=== PATIENT | male | born 1960 | race Caucasian/White ===

== ENCOUNTER 2018-10-10 09:30 | Inpatient (IN) | payer OTHER ==
[~2018-10-10] VITALS: Ht 175.3 cm; Wt 102.1 kg
[2018-10-10 09:39] VITALS: BP 177/106
[2018-10-10 10:13] LABS: HEMATOCRIT 40.9 % (42.0-52.0); HEMOGLOBIN 13.4 gm/dL (14.0-18.0); MCH 28.5 pg (26.0-34.0); MCHC 32.7 g/dL (28.0-37.0); MCV 87.3 fL (80.0-100.0); MPV 10.2 fl. (7.2-11.1); NUCLEATED RBCS 0 /100WBC; PLATELET COUNT* 328 thou/uL (150-400); RBC 4.68 mil/uL (4.50-6.00); RDW-CV 12.6 % (10.5-14.5); WBC 17.5 thou/uL (4.0-11.0)
[2018-10-10 10:27] LABS: BE 2.6 mmol/L (-2 to +3); PCO2 34.7 mmHg (35.0-45.0); PO2 79.3 mmHg (75.0-100.0); pH 7.486 (7.340-7.450)
[2018-10-10 10:31] LABS: ALBUMIN 2.7 g/dL (3.4-5.0); CALCIUM 9.1 mg/dL (8.5-10.1); CREATININE 1.4 mg/dL (0.6-1.3); MAGNESIUM 1.9 mg/dL (1.8-2.4); POTASSIUM 3.6 mmol/L (3.5-5.1); TOTAL BILIRUBIN 0.6 mg/dL (<0.1-1.0); TOTAL PROTEIN 8.2 g/dL (6.4-8.2)
[2018-10-10 10:43] LABS: ABSOLUTE BASOPHILS 0.2 thou/uL (0.0-0.2); ABSOLUTE LYMPHOCYTES 0.7 thou/uL (0.8-5.3); ABSOLUTE MONOCYTES 1.4 thou/uL (0.0-1.2); ABSOLUTE NEUTROPHILS 15.2 thou/uL (1.6-8.1); ATYPICAL LYMPHS 2 %; PLATELET ESTIMATE ADEQUATE
[2018-10-10 10:57] LABS: URINE BILIRUBIN NEGATIVE (Negative); URINE BLOOD 1+ (Negative); URINE CLARITY CLEAR; URINE COLOR YELLOW; URINE GLUCOSE-RANDOM 3+ (Negative); URINE KETONES NEGATIVE (Negative); URINE LEUKOCYTES-REFLEX NEGATIVE (Negative); URINE NITRITE-REFLEX NEGATIVE (Negative); URINE PROTEIN NEGATIVE (Negative); URINE SPECIFIC GRAVITY <= 1.005 (1.005-1.030); URINE UROBILINOGEN 0.2 E.U./dl (0.2-1.0)
[2018-10-10 11:08] LABS: BACTERIA-REFLEX 1-9 Few /HPF (None Seen); CASTS None Seen /LPF (None Seen); CRYSTALS None Seen /LPF (None Seen); MUCUS None Seen strn/LPF (None Seen); SQUAMOUS 4-10 Moderate /LPF (0-3); URINE RBC 0-2 Rare /HPF (0-2); URINE WBC-REFLEX 0-5 Rare /HPF (0-5)
[2018-10-10 11:16] VITALS: BP 165/86
[2018-10-10 11:45] VITALS: BP 183/93
[2018-10-10] MEDS ORDERED: METFORMIN HCL500 MG PO (13:12)
[2018-10-10] MEDS ORDERED: LEVEMIR SUBQ (13:13)
[2018-10-10] MEDS ORDERED: LOPRESSOR50 PO (13:13)
[2018-10-10] MEDS ORDERED: COZAAR 25 MG TA25 M1 PO (13:15)
--- NOTE | 2018-10-10 15:19 | NUR ---
WOUND CARE NOTE: CONSULT RECEIVED FOR GANGRENE PATIENT PRESENTS WITH WET GANGRENE TO THE RIGHT 2ND TOE EXTENDING TO THE PLANTAR SURFACE OF HIS FOOT. FOUL ODOR NOTED UPON ENTERING ROOM. PATIENT WAS SEEN WITH PODIATRY. ANTICIPATE SURGERY THIS EVENING. DISTAL 2ND TOE IS BLACK, MUMIFIED. AT THE METATARSAL HEAD THERE IS WET, BLACK NON-VIABLE TISSUE. BLACK NON-VIABLE TISSUE EXTENDS TO THE PLANTAR AREA. ENTIRE FOREFOOT IS RED, EDEMATOUS. WRAPPED FOOT WITH DRY GAUZE UNTIL SURGERY. PATIENT EDUCATED ON NPO STATUS IN PREPARATION OF SURGERY, COMMUNICATED UNDERSGTANDING.
--- NOTE | 2018-10-10 15:40 | EKG ---
[place] [address] ELECTROCARDIOGRAM REPORT Name: NICK REYNOSO Room: [address] ADM IN .R.#: [id number] Admission: 10/10/18 Attend Phys: Sp Steiner Discharge: Date of : 58 Report #: [id number] THIS REPORT FOR: //name// [facility] ED Test Date: 2018-10-10 Test Time: 10:06:21 Pat Name: NICK REYNOSO Department: Room: [facility] Gender: M Cloud Systems Administrator: : 1960 Requested By: Megan Brown Order Number: [id number] MD: Vipul Bruce Measurements Intervals [place] Rate: 115 P: 82 WV: 187 QRS: 63 QRSD: 101 T: 262 QT: 332 QTc: 460 Interpretive Statements Sinus tachycardia Probable left atrial enlargement Nonspecific repol abnormality, diffuse leads No previous ECG available for comparison Electronically Signed On 10-10-2018 15:40:44 CDT by Vipul Bruce [email or web address] <ELECTRONICALLY SIGNED> By: Vipul Bruce MD, [facility] 10/10/18 1540 1006 05 Vipul Bruce MD, FAC /EPI
[2018-10-10 17:35] VITALS: BP 124/73
[2018-10-10 20:20] VITALS: BP 139/77
[2018-10-11] VITALS: BP 163/88
[2018-10-11 02:10] LABS: GLYCOHEMOGLOBIN (HGB A1C) 12.4 % (4.8-5.6)
[2018-10-11 04:00] VITALS: BP 147/79
--- NOTE | 2018-10-11 05:01 | NUR ---
PT CARE ASSUMED AT 1930. ALERT AND ORIENTED X4. CALL LIGHT WITHIN REACH AND BED IN LOW POSITION. SAT MAINTAINED IN RA. C/O PAIN, MEDICATION GIVEN PER EMAR. DRESSING C/D/I. HOURLY ROUNDING DONE FOR PT SAFETY.
[2018-10-11 08:00] VITALS: BP 155/79
--- NOTE | 2018-10-11 08:00 | NUR ---
AM ASSESSMENT COMPLETE, DEFER TO COMPUTER CHARTING. SEED TECHNICIAN TRACKING SR. ALERT ORIENTED, FLAT AFFECT. LUNGS CTA - DIMINISHED IN BASES. DRESSING TO RIGHT FOOT CDI - EXTREMITY ELEVATED ON PILLOW. REPORTING HAVING DISCOMFORT IN FOOT, WILL GIVE REPEAT PAIN MEDICATION AND CONTINUE TO MONITOR. CALL LIGHT WITHIN REACH.
[2018-10-11 11:50] LABS: ABSOLUTE BASOPHILS 0.2 thou/uL (0.0-0.2); ABSOLUTE LYMPHOCYTES 0.9 thou/uL (0.8-5.3); ABSOLUTE MONOCYTES 1.6 thou/uL (0.0-1.2); ABSOLUTE NEUTROPHILS 12.8 thou/uL (1.6-8.1); BASOPHILS 1.1 %; EOSINOPHILS 0.1 %; HEMATOCRIT 34.2 % (42.0-52.0); LYMPHOCYTES 5.8 %; MCH 28.7 pg (26.0-34.0); MCHC 32.9 g/dL (28.0-37.0); MCV 87.2 fL (80.0-100.0); MONOCYTES 10.2 %; MPV 10.2 fl. (7.2-11.1); NUCLEATED RBCS 0 /100WBC; PLATELET COUNT* 315 thou/uL (150-400); POLYS 82.8 %; RBC 3.93 mil/uL (4.50-6.00); RDW-CV 12.7 % (10.5-14.5); WBC 15.4 thou/uL (4.0-11.0)
[2018-10-11 11:51] LABS: HEMOGLOBIN 11.3 gm/dL (14.0-18.0)
--- NOTE | 2018-10-11 12:08 | CON ---
[address] [address] CONSULTATION Name: NICK REYNOSO Room: [address] IN M.R.#: [id number] Admission: 10/10/18 Attend Phys: Sp Steiner Discharge: Date of : 58 Report #: [id number] THIS REPORT FOR: //name// CC: Fredcarrol Wright He Garcia DATE OF SERVICE: 10/10/2018 Infectious Disease Consultation ATTENDING PHYSICIAN: He Garcia DO REASON FOR EVALUATION: Right second toe necrotizing infection, likely deep probable osteomyelitis. HISTORY OF PRESENT ILLNESS: Chart reviewed, patient examined. This is a 57-year-old with diabetes mellitus type 2 complicated by vasculopathy, has peripheral neuropathy as well, presented to the emergency room with complaints of discoloration of his right second toe. This was found to be black. He noted change happened roughly 2-3 weeks ago. He says his blood sugars have been running in excess of 250. It is not clear if he has had systemic illness. He has had not any fevers or chills nor has he had any dyspnea, no abdominal-related complaints. He is actually scheduled to have his toe amputation this afternoon. Other evaluation, chest x-ray was otherwise unremarkable. ABGs: pH 7.486 with a pO2 of 79.3 on room air. Lactic acid was 3.1 and repeat was 2.3 and 2.0 respectively. Glucose is now controlled and in the [address] of lower extremities showed some subcutaneous emphysema in the forefoot extending to the second toe compatible with a known diagnosis cellulitis and gangrene. There is also gas within the proximal, middle and distal phalanx of the second toe, marked thinning of the skin and distal aspect of the second toe. White count is elevated at 17.5. Blood cultures have been collected and are pending. ALLERGIES: PENICILLINS. CURRENT MEDICATIONS: Include metoprolol, p.r.n. analgesics, antiemetics, did receive vancomycin and ceftriaxone preop. PAST MEDICAL HISTORY: Diabetes mellitus type 2, complicated by vasculopathy; hypertension, has known aortocoronary bypass grafting, has had back surgery. SOCIAL HISTORY: Former smoker. No ethanol or illicit drug use. FAMILY HISTORY: Noncontributory. REVIEW OF SYSTEMS: [place] [address] CONSULTATION Name: UMAIR REYNOSOZAINAB Grant Room: [address] IN [facility]#: [id number] Admission: 10/10/18 Attend Phys: Sp Steiner Discharge: Date of : 58 Report #: [id number] REVIEW OF SYSTEMS: Except with exception noted above in history of present illness. PHYSICAL EXAMINATION: GENERAL: He appears somewhat flat affect. He is pale, fbno-[id number] distress, appears undernourished. VITAL SIGNS: Temperature 99.8, pulse 111, respirations 18, blood pressure 183/93. SKIN: Warm, dry. No appreciated rashes. HEENT: Normocephalic. Extraocular muscles intact. NECK: Supple. LUNGS: Clear to auscultation. HEART: Regular, tachycardic, cannot appreciate a murmur. ABDOMEN: Soft, nontender. GENITOURINARY AND RECTAL: Deferred. LABORATORY DATA: Most recent lactic acid of 2.0. Initially was 3.1. Urinalysis: 0-5 white cells. CBC: White count of 17.5, H and H 13.4 and 40.9, platelets 328. Electrolytes: Sodium 128, potassium 3.6, chloride 88, bicarbonate is 28, anion gap of 12, BUN and creatinine 13 and 1.4, glucose was 588. LFTs unremarkable. Albumin of 2.7, total protein of 8.2. ABGs: pH 7.486, pCO2 34.7, pO2 of 79.3. IMAGING DATA: Chest x-ray unremarkable. ASSESSMENT: Gangrenous changes involving the second right toe. I suspect deep infection, probable osteomyelitis. Agree with the amputation. We will await findings to the severity and extent per Dr. Mason at surgery. We will continue empiric antimicrobial therapy, presume a polymicrobial etiology. We will have to likely make arrangements for outpatient parenteral therapy for up to 6 weeks. <ELECTRONICALLY SIGNED> By: Gerardo Sawyer MD 10/11/18 1208 [id number] [id number] Sawyer MD /nt
[2018-10-11 12:21] VITALS: BP 137/74
--- NOTE | 2018-10-11 14:59 | NUR ---
Pt is A&O. Resides at home with a roommate. Active and independent. NO DME. No hx of HH or SNF. Goal is home at dc, no needs anticipated. Following.
--- NOTE | 2018-10-11 15:48 | NUR ---
TO RADIOLOGY FOR TEST VIA BED
[2018-10-11 17:18] VITALS: BP 178/91
--- NOTE | 2018-10-11 17:59 | NUR ---
RUGBY UNION FOOTBALLER TRACKING WITH NO CHANGE IN RHYTHM. ELEVATED TEMPATURE - PATIENT REFUSING SCHEDULED TYLENOL EARLIER - EDUCATED ON IMPORTANCE OF TAKING MEDICATION - AGREED TO TAKE TYLENOL. GIVEN MORPHINE IV X 2 DURING SHIFT FOR DISCOMFORT IN RIGHT FOOT. TOLERATING DIET, IV INFUSING. DRESSING CDI TO RIGHT FOOT. CALL LIGHT WITHIN REACH. WILL CONTINUE WITH PLAN OF CARE.
[2018-10-11 19:30] VITALS: BP 136/77
[2018-10-12] VITALS: BP 106/70
[2018-10-12 04:00] VITALS: BP 117/62
--- NOTE | 2018-10-12 05:28 | NUR ---
VITALS WNL. SEE MAR. SEE CHARTING. FALL PRECAUTIONS IN PLACE. HOURLY ROUNDING FOR SAFETY.
[2018-10-12 08:10] VITALS: BP 135/71
[2018-10-12 11:30] VITALS: BP 121/73
--- NOTE | 2018-10-12 13:34 | NUR ---
BUSINESS EMPLOYMENT SPECIALIST SPOKE TO DILLAN WITH [facility] TO INFORM OF THE IV ABT INFUSION REFERRAL AND FAXED THE PATIENT'S FACESHEET AND MED LIST. SOCORRO RETURNED CALL AND INFORMS THAT THE PATIENT HAS A $500 DEDUCTIBLE AND $4500 OOP COST, THAT HAS NOT BEEN MET AT THIS TIME. PATIENT SHOULD MEET THE DEDUCTIBLE THRU THIS HOSPITAL ADMISSION. PATIENT'S ESTIMATED COST IF DEDUCTIBLE IS NO T MET BASED ON ABT OF MATIAS IS $265.20 PER/DAY WITH SUIPPLIES. COST IF DEDUCTIBLE IS MET IS $45.90 PER/DAY WITH SUPPLIES. D/C SURGICAL SERVICES TECH TO SPEAK TO THE PATIENT TO INFORM OF THIS INFO. CM WILL REMAIN AVAILABLE TO ASSIST AND FOLLOW NEEDED. [facility] PHONE: [phone] FAX: [phone]
--- NOTE | 2018-10-12 15:44 | NUR ---
WOUND CARE NOTE: REASSESSMENT OF RIGHT FOOT WOUND WITH PODIATRY. PATIENT IS POD #2 FROM I&D AND AMPUTATIONS OF 1ST AND 2ND TOES AND DISTAL 2ND METATARSAL HEAD ON THE RIGHT. LARGE ULCERATION WITH MOIST, DARK RED WOUND BED. BONE EXPOSED. MONCHO-WOUND DISCOLORED. FOUL ODOR NOTED. PHOTOGRAPHS OBTAINED. PODIATRY AND VASCULAR SLAB CONDITIONER SUPERVISOR IN AND ASSESSED WOUNDS. ANTICIPATE ANGIO ON MONDAY, ANTICIPATE FURTHER SURGICAL DEBRIDEMENT MAY BE NECESSARY. PACKED WOUND WITH AQUACEL AG AND COVERED WITH ABDS. SECURED WITH KERLIX THEN MANDA WRAP. RECOMMEND KEEP PRESSURE OFF RIGHT FOOT HEEL WEIGHT BEARING FOR TRANSFERS ONLY ENCOURAGE GOOD NUTRTION/HYDRATION TIGHT BLOOD GLUCOSE CONTROL
--- NOTE | 2018-10-12 15:57 | NUR ---
RIGHT BASILIC VESSEL ACCESSED FOR 4 SAUDI ARABIAN SINGLE LUMEN PICC. LINE PRE-TRIMMED TO 41 CM AND ADVANCED TO THE ZERO APOLINAR WITH NO RESISTANCE MET. UPPER ARM CIRCUMFERENCE ABOVE INSERTION SITE= 13". SHERLOCK MAGNET AND 3CG CONFIRMATION OF TIP AT THE CAVOATRIAL JUNCTION. GUIDEWIRE REMOVED, LINE FLUSHED AND INSERTION SITE DRESSED. REPORT GIVEN TO NURSING STAFF.
[2018-10-12 16:00] VITALS: BP 127/68
--- NOTE | 2018-10-12 16:15 | NUR ---
PT VSS RUNNING SR ON THE MONITOR THIS SHIFT TOLERATING RA. PT HAD ELEVATED TEMPS OVERNIGHT, BUT NO C/O ELEVATED TEMP THIS SHIFT. DR FIERRO PLACED BOWEL MEDS ORDERS BUT PT HAD BM THIS SHIFT AND AN ORDER FOR INCREASED DOSE OF PAIN MEDS WAS PROVIDED TO PT AND HIS PAIN IS MUCH BETTER MANAGED. DR JENKINS AND WOUND CARE ASSESSED PT WELL VASCULAR THIS SHIFT, WILL AWAIT FURTHER ORDERS REGARDING WOUND CARE AND DRESSING CHANGES. PT HAS TO HAVE PULSES DOPPLERED FOR HIS BLE AND SITES MARKED ON THE RIGHT FOOT, PT HAS 1+ PULSES ON THE POPLITEAL SITES BILATERALLY. PT HAS FLUIDS INFUSING AND TOLERATED A SL PICC LINE PLACEMENT THIS SHIFT DUE TO NEED FOR VOLUNTEER SERVICES DIRECTOR IV ABX. PT IS NWB TO RLE AT THIS TIME, WOUNDS PHOTOED AND PLACED IN THE CHART. PT TOLERATING DIET THIS SHIFT WELL. HOURLY ROUNDING MAINTAINED THIS SHIFT. WILL SIGN OFF AT THIS TIME
--- NOTE | 2018-10-12 17:16 | NUR ---
ASSUMMED CARE OF PT. PT ALERT AND ORIENTED. PT RESTING IN ROOM. FALL RISK PRECAUTIONS IN PLACE. HOURLY ROUNDING COMPLETED. WILL CONTINUE TO MONIIOR.
[2018-10-13] VITALS (7 sets, daily range): BP systolic 113–144; BP diastolic 60–77
[2018-10-13 06:53] LABS: ABSOLUTE BASOPHILS 0.1 thou/uL (0.0-0.2); ABSOLUTE EOSINOPHILS 0.1 thou/uL (0.0-0.7); ABSOLUTE LYMPHOCYTES 1.2 thou/uL (0.8-5.3); ABSOLUTE MONOCYTES 1.4 thou/uL (0.0-1.2); ABSOLUTE NEUTROPHILS 8.9 thou/uL (1.6-8.1); BASOPHILS 0.8 %; EOSINOPHILS 1.2 %; HEMATOCRIT 31.5 % (42.0-52.0); HEMOGLOBIN 10.5 gm/dL (14.0-18.0); LYMPHOCYTES 10.5 %; MCH 28.8 pg (26.0-34.0); MCHC 33.3 g/dL (28.0-37.0); MCV 86.3 fL (80.0-100.0); MPV 9.5 fl. (7.2-11.1); NUCLEATED RBCS 0 /100WBC; PLATELET COUNT* 323 thou/uL (150-400); POLYS 75.5 %; RBC 3.65 mil/uL (4.50-6.00); WBC 11.8 thou/uL (4.0-11.0)
--- NOTE | 2018-10-13 06:55 | NUR ---
VITALS WNL. SEE MAR. SEE CHARTING. FALL PRECAUTIONS IN PLACE. HOURLY ROUNDING FOR SAFETY.
[2018-10-13 08:10] LABS: ESR (SEDRATE) 110 mm/hr (0-20)
--- NOTE | 2018-10-13 08:38 | NUR ---
ASSUMED CARE OF PT THIS AM AROUND 0715- DISTRICT HOME ECONOMICS AGENT IN PLACE ORDERED, TRACING SR- UPON ASSESSMENT PT NOTED TO BE RESTING IN BED, WATCHING TV- PT A&O X4- CONTINENT OF BOWEL AND BLADDER- ASSIST X1 WITH TRANSFERS, NWB STATUS NOTED TO RLE- 1ST 2 TOES NOTED AMPUTATION- DRESSING C/D/I- LCTA, RESP EVEN AND UN-LABORED- VSS, O2 SAT 93% ON RA- ABD SOFT/ROUND/NON-TENDER, BS X4 QUADS- LAST BM REPORTED 10/12/18- RIGHT PICC NOTED INTACT TO RUE, IVF INFUSSING PRESCIBED- IV ABT GIVEN THIS AM PRESCIBED, NO ADVERSE REACTIONS TO NOTE- BS MONITORED ORDERED, INSULIN PRESCIBED- CALL LIGHT AND PERSONAL BELONGINGS WITH IN REACH- PRN OXY 2 TABS GIVEN THIS AM AT 0811 PER PT REQUEST R/T 9/10 PAIN TO RLE- HOURLY ROUNDS IN PLACE R/T SAFETY/NEEDS- ALL NEEDS MET AT THIS TIME-WCTM
--- NOTE | 2018-10-13 16:44 | NUR ---
PT AGNIESZKA RESTING IN BED SIDE CHAIR WATCHING TV- ASSISTANT PROFESSOR OF ART IN PLACE ORDERED, TRACING SR- PICC TO RUE INTACT, IVF INFUSSING PRESCRIBED- VANC ROUGH NOTED TO BE 2 HOURS LATE WITH RESULTS NOTED LOW AT 13- LAB STATES TO CONTINUE CURRENT DOSE WITH REDRAW TO BE SCHEDULED- DRESSING TO RLE CHANGED PER THIS SHIFT- SCHEDULED TYLENOL AND PRN OXY GIVEN THIS SHIFT- PT REPORTS MEDICATIONS TO BE EFECTIVE IN PAIN RELIEF- GOOD PO INTAKE NOTED THIS SHIFT WITH MEALS, BS MONITORED WITH SSI PRESCIBED- CALL LIGHT AND PERSONAL BELONGINGS WITH IN REACH- ALL NEEDS MET AT THIS TIME- WCTM
[2018-10-14 04:00] VITALS: BP 153/77
[2018-10-14 04:32] LABS: CALCIUM 8.7 mg/dL (8.5-10.1); CREATININE 1.2 mg/dL (0.6-1.3); POTASSIUM 4.2 mmol/L (3.5-5.1)
[2018-10-14 04:33] LABS: ABSOLUTE BASOPHILS 0.1 thou/uL (0.0-0.2); ABSOLUTE EOSINOPHILS 0.3 thou/uL (0.0-0.7); ABSOLUTE LYMPHOCYTES 1.6 thou/uL (0.8-5.3); ABSOLUTE MONOCYTES 1.2 thou/uL (0.0-1.2); ABSOLUTE NEUTROPHILS 8.1 thou/uL (1.6-8.1); BASOPHILS 0.7 %; EOSINOPHILS 2.5 %; HEMATOCRIT 31.1 % (42.0-52.0); HEMOGLOBIN 10.1 gm/dL (14.0-18.0); LYMPHOCYTES 13.9 %; MCH 28.2 pg (26.0-34.0); MCHC 32.6 g/dL (28.0-37.0); MCV 86.5 fL (80.0-100.0); MONOCYTES 10.7 %; NUCLEATED RBCS 0 /100WBC; PLATELET COUNT* 354 thou/uL (150-400); POLYS 72.2 %; RBC 3.59 mil/uL (4.50-6.00); RDW-CV 13.2 % (10.5-14.5); WBC 11.2 thou/uL (4.0-11.0)
--- NOTE | 2018-10-14 06:42 | NUR ---
VITALS WNL. SEE MAR. SEE CHARTING. FALL PRECAUTIONS IN PLACE. HOURLY ROUNDING FOR SAFETY.
[2018-10-14 07:55] VITALS: BP 147/66
--- NOTE | 2018-10-14 09:23 | NUR ---
ASSUMED CARE OF PT THIS AM AROUND 0715- PILOT [address]IG[address] PATROL IN PLACE ORDERED, TRACING SR- UPON ASSESSMENT PT NOTED TO BE RESTING IN BED- PT A&O X4- CONTINENT OF BOWEL AND BLADDER- ASSIST X1 FOR TRANSFERS, NWB TO RLE- LCTA, DIMINISHED IN BASES- VSS, O2 SAT 92% ON RA- ABD SOFT/ROUND/NON-TENDER, BS X4 QUADS- LAST BM REPORTED 10/14/18- GOOD PO INTAKE NOTED THIS AM WITH BREAKFAST- RUE PICC NOTED INTACT, IVF INFUSSING PRESCRIBED- IV ABT GIVEN THIS AM PRESCIBED, NO ADVERSE REACTIONS NOTED- HERE THIS AM AND REPORTED TO HAVE CHANGED DRESSING TO RLE, DRESSING C/D/I- UNABLE TO OBTAIN PICTURES R/T TO DRESSING CHANGE ALREADY COMPLETED- PT DENEIS ANY C/O PAIN/DISCOMFORT AT THIS TIME- CALL LIGHT AND PERSONAL BELONGINGS WITH IN REACH- HOURLY ROUNDS IN PLACE R/T SAFETY/NEEDS- ALL NEEDS MET AT THIS TIME-WCTM
[2018-10-14 12:18] VITALS: BP 125/71
[2018-10-14 16:23] VITALS: BP 165/63
--- NOTE | 2018-10-14 16:33 | NUR ---
PT NASHLTKaya RESTING IN BED- PRINTING ROLLER HANDLER IN PLACE ORDERED, TRACING SR-RUE PICC NOTED INTACT, IVF INFUSSING PRESCRIBED- PT UP TO BED SIDE CHAIR THIS SHIFT, TOLERATING WELL- GOOS PO INTAKE NOTED THIS SHIFT WITH MEALS- BS MONITORED ORDERED, SSI PRESCIBED- IV VANC D/C'D THIS SHIFT PER ID-HYDROCORTISONE CREAM ORDERED FOR FACE BID PER ID THIS SHIFT- DRSG TO RLE C/D/I- OXY PRN X2 THIS SHIFT R/T C/O RLE FOOT PAIN- PT REPORTS MEDICATION TO BE EFFECTIVE- PT MAKES NEEDS KNOWN- ALL NEEDS MET AT THIS TIME- WCTM
[2018-10-15] VITALS (8 sets, daily range): BP systolic 130–170; BP diastolic 72–82
--- NOTE | 2018-10-15 06:41 | NUR ---
VITALS WNL. SEE MAR. SEE CHARTING. FALL PRECAUTIONS IN PLACE. HOURLY ROUNDING FOR SAFETY.
--- NOTE | 2018-10-15 10:19 | NUR ---
EXPLORATION ENGINEER SPOKE TO DILLAN WITH [facility] AND SHE INFORMS THAT [facility] IS READY TO ACCCEPT THE PATIENT TODAY. I.D. PROGRESS NOTE INFORMS THAT THE PATIENT MAY BE HAVING PROCEDURE DONE TODAY AND MAY NOT BE READY TO D/C. CM WILL REMAIN AVIALABLE TO ASSIST AND FOLLOW NEEDED.
--- NOTE | 2018-10-15 11:06 | PATH ---
[address] [address] PATHOLOGY RPT PROCEDURE Name: ANGELESTOÑO Room: [address] IN .R.#: [id number] Admission: 10/10/18 Date of : 58 Discharge: Report #: [id number] Path Case #: [id number] [facility] Accession Number: [id number] . 01 Material submitted: . PART A: RIGHT HALLUX SESAMOID, RIGHT FOOT PART B: SECOND METATARSAL/SECOND TOE RIGHT FOOT . 01 Clinical history: . Osteomyelitis right second toe . 02 Diagnosis: A. Right hallux, sesamoid, right foot: - Benign toe (with missing nail), with nonspecific ulceration and prominent osteomyelitis of underlying phalangeal bone, with proximal disarticulation margin free of osteomyelitis. - Separate benign osteocartilaginous tissue compatible with sesamoid bone, with prominent acute inflammation of attached soft tissues. . B. Second metatarsal/second toe right foot: - Benign toe (with missing nail) with prominent acute inflammation and necrosis of soft tissues and mostly necrotic bone. - Separate osteocartilaginous segment compatible with metatarsal showing prominent osteomyelitis and acute inflammation of attached soft tissues. See comment. (NEGRO:micaela; 10/15/2018) QMS/10/15/2018 . 02 Comment: In the separate osteocartilaginous segment compatible with metatarsal (specimen B) one convex articular aspect, typical of a metatarsal head, shows acute inflammation of soft tissue at the edge with osteomyelitis focally extending beneath the cartilagious surface and the opposite transection edge of this segment is free of osteomyelitis. (NEGRO:micaela; 10/15/2018) . 02 Electronically signed: . Bruce [place] MD, Pathologist NPI- [id number] . 01 Gross description: . A. The specimen is received in formalin, labeled "Toño Jackson, right hallux, sesamoid right foot"and consists of a disarticulated toe measuring 5.8 x 3.6 x 3.3 cm. The bone margin is smooth and concave in appearance, consistent with disarticulation. The bone and soft tissue margins are inked black. The nail is absent. At the nailbed, there is a poorly circumscribed, irregular in contour and light de guzman to fletcher-de guzman lesion measuring 1.7 x 1.7 cm, which is 2.0 cm from [place] [address] PATHOLOGY RPT PROCEDURE Name: TOÑO JACKSON Juanita Room: [address] IN [facility]#: [id number] Admission: 10/10/18 Date of : 58 Discharge: Report #: [id number] Path Case #: [id number] lateral aspect of the specimen, there is a possible lesion at the skin margin measuring 2.3 x 1.1 cm. A full-thickness longitudinal cross-section is submitted from proximal to distal aspects in cassettes A1 through A3, following decalcification. Sister Superior sections of the possible lesion on the lateral aspect of the specimen are submitted in cassette A4. . Also received within the specimen container is an additional segment of bone with attached yellow-de guzman to dusky fletcher-de guzman soft tissue measuring 3.6 x 3.3 x 1.8 cm. Articular surfaces are identified, and are inked black. The specimen is submitted representatively in cassette A5, following decalcification. . B. The specimen is received in formalin, labeled "Toño Jackson, second metatarsal/second toe right foot". Received is an amputated digit measuring 4.1 x 2.3 x 1.9 cm in greatest dimensions. The bone margin is jagged in appearance. The soft tissue margin is necrotic in appearance. The bone and soft tissue margins are inked black. The nail is absent. 98% of the epidermal surface is dusky fletcher-brown to black and necrotic in appearance. A full-thickness longitudinal cross-section is submitted from proximal to distal aspects in cassettes B1 and B2, following decalcification. . Also received within the specimen container is an additional segment of bone displaying one smooth, convex margin and one blunt, transected margin 4.6 x 2.1 x 1.6 cm in greatest dimension. The transected margin is inked black. A full-thickness longitudinal cross-section is submitted from transected to convex aspects and submitted in cassettes B1 through B4, following decalcification. (CAA; 10/11/2018) QAC/QAC . 02 Pathologist provided ICD-10: M86.8X7, L97.519 . 02 CPT . 721633, 735917, 128252, 153470 Specimen Comment: A courtesy copy of this report has been sent to Specimen Comment: [phone], . Specimen Comment: Report sent to DR FIERRO / DR SANTOS Performed at: [address], [place], [place] [id number] MD Darwin Owen MD Phone: [phone] Performed at: 02 [facility] [address], [place], [place] [id number] MD Bruce [place] MD Phone: [phone]
[2018-10-15 17:10] LABS: GLOBULIN TOTAL 4.2 g/dL (2.2-3.9); M-SPIKE Not Observed g/dL (Not Observed)
--- NOTE | 2018-10-15 17:50 | NUR ---
PATIENT RETURNED TO ROOM FROM ARTERIOGRAM IN IR VIA HOSPITAL BED AND IR STAFF. ASSESSMENT COMPLETE, VS OBTAINED. CLINICAL RESEARCH ANALYST IN PLACE, O2 SAT 97% RA. PT LAYING FLAT UNTIL 193. DRSG C/D/I OVER L GROIN SITE. CALL LIGHT IN REACH.
[2018-10-16] VITALS: BP 138/85
[2018-10-16 04:00] VITALS: BP 154/86
[2018-10-16 07:30] VITALS: BP 151/79
[2018-10-16 07:53] LABS: HEMATOCRIT 28.4 % (42.0-52.0); HEMOGLOBIN 9.6 gm/dL (14.0-18.0); MCH 28.9 pg (26.0-34.0); MCHC 33.6 g/dL (28.0-37.0); MCV 85.9 fL (80.0-100.0); NUCLEATED RBCS 0 /100WBC; PLATELET COUNT* 369 thou/uL (150-400); RBC 3.31 mil/uL (4.50-6.00); RDW-CV 13.7 % (10.5-14.5); WBC 9.4 thou/uL (4.0-11.0)
--- NOTE | 2018-10-16 07:59 | NUR ---
PT IS ABLE TO COMMUNICATE HIS NEEDS TO STAFF EFFECTIVELY. CURRENT PAIN MEDICATION REGIMEN HAS BEEN ADEQUATE FOR CONTROLLING HIS PAIN UP TO THIS TIME. PT RECEIVED AN AMBIEN LAST EVENING TO HELP WITH SLEEP; PT LATER PULLED OUT PICC LINE, WAS CONFUSED, AND NAKED IN THE HALLWAY; PT DENIES ACTING IN THIS WAY ON PREVIOUS NIGHTS; AMBIEN WAS ONLY CHANGE. RIGHT FOOT ELEVATED OVERNIGNT. DR. SANTIAGO AND [facility] TO DISCUSS NEXT BEST COURSE OF ACTION REGARDING HIS RIGHT FOOT.
[2018-10-16 08:09] LABS: ALBUMIN 1.8 g/dL (3.4-5.0); CALCIUM 8.4 mg/dL (8.5-10.1); TOTAL BILIRUBIN 0.4 mg/dL (<0.1-1.0); TOTAL PROTEIN 6.3 g/dL (6.4-8.2)
[2018-10-16 08:40] LABS: ABSOLUTE EOSINOPHILS 0.2 thou/uL (0.0-0.7); ABSOLUTE LYMPHOCYTES 1.2 thou/uL (0.8-5.3); ABSOLUTE MONOCYTES 0.6 thou/uL (0.0-1.2); ABSOLUTE NEUTROPHILS 7.4 thou/uL (1.6-8.1); PLATELET ESTIMATE ADEQUATE
[2018-10-16 12:24] VITALS: BP 142/71
[2018-10-16 14:56] VITALS: BP 170/74
--- NOTE | 2018-10-16 15:56 | NUR ---
RIGHT CEPHALIC VESSEL ACCESSED FOR SINGLE LUMEN PICC. LINE PRE-TRIMMED TO 41 CM AND ADVANCED TO THE ZERO APOLINAR WITH NO RESISTANCE MET. UPPER ARM CIRCUMFERENCE ABOVE INSERTION SITE= 12 1/2". SHERLOCK MAGNET AND 3CG CONFIRMATION OF TIP TERMINATION AT THE CAVOATRIAL JUNCTION. GUIDE =WIRE REMOVED, LINE FLUSHED AND INSERTION SITE DRESSED. REPORT GIVEN TO JAYA ALEJANDRO.
[2018-10-16 20:05] VITALS: BP 124/63
[2018-10-17] VITALS: BP 139/81
[2018-10-17 04:00] VITALS: BP 157/89
--- NOTE | 2018-10-17 06:09 | NUR ---
VSS. SURGICAL DRESSING TO R FOOT C/D/I. PT HAS KEPT RLE ELEVATED ON PILLOW. C/O R FOOT PAIN 8-9/10 EARLY IN SHIFT, DIFFICULTY REDUCING PAIN PRN OXYCODONE AND HYDROCODONE. ONE DOSE PRN MORPHINE GIVEN AND PT HAD NO C/O OF PAIN FOR SEVERAL HOURS THEREAFTER, APPEARED TO SLEEP WELL. CALL LIGHT WITHIN REACH.
--- NOTE | 2018-10-17 07:20 | NUR ---
CHANGE OF SHIFT BEDSIDE REPORT GIVEN PATIENT SEEN AT BEDSIDE, IN BED ASLEEP ASSUMED PATIENT CARE
--- NOTE | 2018-10-17 07:59 | OP ---
[facility] [address] [place] [address] OPERATIVE REPORT Name: NICK REYNOSO Room: [address] IN M.R.#: [id number] Admission: 10/10/18 Attend Phys: Sp Steiner Discharge: Date of : 58 Report #: [id number] THIS REPORT FOR: //name// CC: Fred Garcia DATE OF SERVICE: 10/15/2018 PREOPERATIVE DIAGNOSIS: Critical right lower extremity ischemia with open right foot wound. POSTOPERATIVE DIAGNOSIS: Critical right lower extremity ischemia with open right foot wound. OPERATION: 1. Ultrasound-guided access to left common femoral artery. 2. Aortoiliofemoral angiogram. 3. Third order selective right lower extremity angiogram. 4. Right SFA and popliteal angioplasty and stent. 5. Right peroneal and posterior tibial artery angioplasty. SURGEON: Gaurav Harrison DO. SECURITY SYSTEMS ENGINEER: Dr. Friedman, PGY2. ZOË Paulino. ANESTHESIA: Sedation with local. ESTIMATED BLOOD LOSS: 25 mL. FLUIDS: About 500 crystalloid. URINE OUTPUT: None. SPECIMENS: None. IMPLANTS: 6 x 170 LifeStent in the right SFA and popliteal artery. COMPLICATIONS: None. FINDINGS: Initial aortogram demonstrated patent infrarenal aorta, bilateral renal arteries, bilateral common internal and external iliac arteries without significant stenosis. Right lower extremity angiogram demonstrated patent right common femoral, deep femoral arteries without significant stenosis. Right superficial femoral artery was patent with some mild stenosis in the proximal mid portion and occluded distally at the adductor hiatus. He had reconstitution of the knee popliteal artery. His below-knee popliteal artery was patent. His [address] [address] OPERATIVE REPORT Name: NICK REYNOSO Juanita Room: [address] IN .R.#: [id number] Admission: 10/10/18 Attend Phys: Sp Steiner Discharge: Date of : 58 Report #: [id number] right anterior tibial artery was chronically occluded just distal to its origin. His right peroneal artery had moderate diffuse stenosis ____ runoff into the foot. His posterior tibial artery origin was occluded, but after angioplasty, this had druze of inline flow primarily through the posterior tibial artery. CLINICAL HISTORY: The patient is a 57-year-old man with peripheral vascular disease and status post right partial foot amputation. He is in need of revascularization for limb salvage. DESCRIPTION OF PROCEDURE: After informed consent was obtained, the patient was taken to the operating room and placed on the OR bed in supine position. He was administered anesthesia sedation by the nurse at my discretion. Local anesthetic was infiltrated in the skin and subcutaneous tissues. Using ultrasound guidance, the left common femoral artery was accessed with a micropuncture needle. These images were preserved. Using Seldinger technique, a microwire and microsheath were placed, ultimately upsized to a 6-Northern Irish sheath over a Bentson wire. I was able to advance the flush catheter in the infrarenal aorta and performed aortoiliofemoral angiogram with the findings noted above. Obtained up and over access across the bifurcation, positioned catheter in the right common femoral artery, performed the selective right lower extremity angiogram with findings noted above. I administered 8000 units of heparin and exchanged out for a 6-Northern Irish up and over sheath. Then, using a combination of Glidewire Advantage and a seeker catheter, I navigated across the SFA and popliteal artery occlusion. Followup imaging confirmed intraluminal position within the distal popliteal artery. I then angioplastied the SFA popliteal lesion with a 5 mm Ultraverse balloon and this was subsequently stented with a 6 x 170 LifeStent and then post-dilated with a 5 mm Ultraverse balloon. I then exchanged out for an 0.014 wire, was able to navigate down into the peroneal artery and confirmed intraluminal position angiographically. I then angioplastied the peroneal artery with a 3 mm Ultraverse balloon. I then was able to navigate across the posterior tibial artery occlusion into the distal posterior tibial artery, again confirming intraluminal position angiographically. Again, angioplastied the posterior tibial artery with a 3 mm balloon. Completion imaging demonstrated druze of inline flow through the previously occluded SFA occlusion with the new stents and then 2-vessel runoff into the foot, primarily through the posterior tibial artery. Satisfied with the result, the wire and the sheath were backed into left external iliac artery to perform an angiogram to confirm access position. I exchanged out for the short 6-Northern Irish sheath. I then deployed a 6-Northern Irish Mynx closure device in standard fashion, partially reversed the heparin with 40 mg protamine. Manual pressure was held for 10 minutes. Once hemostasis was ensured, sterile dressing was applied. All sponge, sharp and instrument counts reported correct x 2. He [facility] [address] [place] [address] OPERATIVE REPORT Name: NICK REYNOSO Room: M.224-P ADM IN M.R.#: [id number] Admission: 10/10/18 Attend Phys: Sp Steiner Discharge: Date of : 58 Report #: [id number] tolerated the procedure well and was transferred back to his room in stable condition. <ELECTRONICALLY SIGNED> By: Gaurav Harrison DO 10/17/18 0759 1738 0000Gaurav Harrison DO /nt
[2018-10-17 08:00] VITALS: BP 159/78
[2018-10-17 12:00] VITALS: BP 94/61
--- NOTE | 2018-10-17 13:09 | CON ---
[address] [address] CONSULTATION Name: NICK REYNOSO Room: [address] IN M.R.#: [id number] Admission: 10/10/18 Attend Phys: Sp Steiner Discharge: Date of : 58 Report #: [id number] THIS REPORT FOR: //name// CC: Fredcarrol Wright He Garcia CHIEF COMPLAINT: Followup of right partial second ray resection with hallux amputation due to osteomyelitis and deep tissue infection. He has SFA blockage with monophasic waveforms distal to the popliteal region. Vascular Surgery has previously been consulted and is planning angiogram. The patient relates a low grade pain to the foot controlled with oral medication. He is afebrile with good appetite. Wound cultures growing gram-negative rods and gram-positive cocci with identification pending. He is on parenteral ceftriaxone and vancomycin with good tolerance. He has been afebrile with stable vital signs. LABORATORY DATA: WBC 11.2, RBC 3.59, hemoglobin 10.1, hematocrit 31.1 and platelets 354. BUN 19, creatinine 1.2 and glucose 124. PHYSICAL EXAMINATION: VITAL SIGNS: Temperature 98.0, pulse 64, respirations 18 and blood pressure 147/66. MUSCULOSKELETAL: Right foot wound has brown-black moist fibronecrotic tissue with no granulation. There is no active bleeding. The wound margins have delayed capillary refill at roughly 0.5 seconds. The distal foot is cold to touch and becomes warmer at the proximal hindfoot. Low grade inflammation to the wound margins. The remaining lesser digits are viable. IMPRESSION: Deep tissue infection, osteomyelitis, type 2 diabetes mellitus, peripheral vascular disease. PLAN: The wound was cleansed and redressed with Aquacel Ag, ABDs occur and Kerlix gauze. The patient to remain strictly nonweightbearing to the extremity. I spoke with Vascular Surgery today to inquire about upcoming angioplasty and stenting. I would like to attempt a transmetatarsal type amputation of the patient and this was discussed with him today. I do want to pursue further surgical revision until arterial blood flow is maximized. <ELECTRONICALLY SIGNED> By: Herman Mason DPM 10/17/18 1309 0940 [id number] Mason DPM /nt
--- NOTE | 2018-10-17 13:09 | CON ---
[address] [address] CONSULTATION Name: NICK REYNOSO Room: [address] IN M.R.#: [id number] Admission: 10/10/18 Attend Phys: Sp Steiner Discharge: Date of : 58 Report #: [id number] THIS REPORT FOR: //name// CC: Fred Alstoncarrol He Garcia DATE OF SERVICE: 10/13/2018 CHIEF COMPLAINT: Followup of incision and drainage, left foot with partial fourth ray resection for osteomyelitis. The patient is on parenteral vancomycin and ceftriaxone. Cultures growing Gram-positive cocci and gram-negative rods. Vascular Surgery evaluated the patient and has him scheduled for angiogram on Monday. The patient has occlusion of the right SFA with monophasic waveforms distal to the popliteal fossa. He has been afebrile with no constitutional symptoms, his appetite is good. He has remained nonweightbearing with his foot elevated. LABORATORY DATA: WBC 11.8, RBC 3.65, hemoglobin 10.5, hematocrit 31.5, platelets 323. PHYSICAL EXAMINATION: Temperature 98.8, pulse 67, respirations 18, blood pressure 143/77. The surgical wound has brown speck/yellow fibronecrotic tissue with minimal granulation. The skin flaps are necrotic with noted pallor. There is localized inflammation surrounding the skin flaps and the distal foot is cool to the touch. The distal first metatarsal is visible, there is no marixa bone lysis or necrosis. There is no healthy tissue or granulation within the wound bed. IMPRESSION: Status post incision and drainage with partial right second ray resection for osteomyelitis. PLAN: The wound was cleansed and dried. It was packed with Aquacel Ag and covered with ABDs, Kerlix and Jose. Discussed today with Vascular Surgery. I feel it is questionable whether the patient's foot is salvageable given the extent of the infection and his vascular status. He may be better served with a below-knee amputation, although transmetatarsal amputation may be possible pending the clinical course. <ELECTRONICALLY SIGNED> By: Herman Mason DPM 10/17/18 1309 1128 [id number] Mason DPM /nt
--- NOTE | 2018-10-17 13:09 | OP ---
[facility] [address] [place] [address] OPERATIVE REPORT Name: NICK REYNOSO Room: [address] IN M.R.#: [id number] Admission: 10/10/18 Attend Phys: Sp Steiner Discharge: Date of : 58 Report #: [id number] THIS REPORT FOR: //name// CC: Fred Garcia DATE OF SERVICE: 10/10/2018 SURGEON: Herman Mason DPM PREOPERATIVE DIAGNOSES: Osteomyelitis with deep tissue infection, right second ray. POSTOPERATIVE DIAGNOSES: Osteomyelitis with deep tissue infection, right second ray. PROCEDURE: 1. Incision and drainage, right foot to include first and second intermetatarsal spaces. 2. Amputation, right second toe at MTP joint. 3. Resection right distal second metatarsal. 4. Amputation, right great toe at first MTP joint. ANESTHESIA: General LMA. INJECTABLES: 30 mL of a 1:1 mixture of 0.5% Marcaine plain and 1% lidocaine plain. ESTIMATED BLOOD LOSS: Roughly 2 mL. HEMOSTASIS: Right ankle pneumatic tourniquet at 275 mmHg. SPECIMENS: Right second toe, right distal second metatarsal, right great toe, right tibial and fibular sesamoids. CULTURES: 1. Bone, right second toe proximal phalanx for aerobic and anaerobic. 2. Soft tissue, right foot, aerobic and anaerobic. COMPLICATIONS: None. DESCRIPTION OF PROCEDURE: The patient was brought to the OR and placed on the table supine with induction of general LMA anesthesia. A well-padded right ankle pneumatic tourniquet was placed. The ankle block was given, and the extremity was prepped and draped aseptically after exsanguination. A #10 surgical blade was used to create a circumferential incision around the right [facility] [address] [place] [address] OPERATIVE REPORT Name: NICK REYNOSO Room: [address]#: [id number] Admission: 10/10/18 Attend Phys: Sp Steiner Discharge: Date of : 58 Report #: [id number] second toe, and I disarticulated the toe at the MTP joint. The toe was black, mummified with dry gangrene. There was extensive liquefaction on the soft tissue at the second MTP joint level with liquified necrosis along the first and second intermetatarsal spaces with no viable tissue. Roughly 5 mL of purulence was expressed, and I dissected the soft tissue envelope off the distal second metatarsal, and there is no viable tissue whatsoever. The tissue was completely liquified, necrotic with malodor consistent with a web space infection. There was communication to the lateral aspect of the first MTP joint, and purulence was expressed through the MTP joint. Therefore, I disarticulated the great toe. Purulence was expressed and distal first metatarsal had normal appearance with no necrosis, as to the phalangeal base. However, there was purulence within the first MTP joint. I would like to note the second metatarsal was severely discolored at the articular surface and distal aspect. It had a fletcher yellowish discoloration. I removed the tibial and fibular sesamoids as well. I debrided the soft tissue as much as possible and used electrocautery for hemostasis. The wound was flushed with 1 liter of sterile saline with bacitracin irrigant. The wound was open packed with Aquacel Ag and covered with fluffs, ABDs, Kerlix and Jose bandage. The tourniquet was deflated, and the patient left the OR with no complications noted. <ELECTRONICALLY SIGNED> By: Herman Mason DPM 10/17/18 1309 0929 [id number] Mason DPM /nt
--- NOTE | 2018-10-17 13:09 | CON ---
[address] [address] CONSULTATION Name: NICK REYNOSO Room: [address] IN M.R.#: [id number] Admission: 10/10/18 Attend Phys: Sp Steiner Discharge: Date of : 58 Report #: [id number] THIS REPORT FOR: //name// CC: Fred Garcia DATE OF SERVICE: 10/15/2018 CHIEF COMPLAINT: Status post resection, right distal second metatarsal, second toe and right hallux and sesamoids. Surgical pathology was positive for osteomyelitis to the right second metatarsal with a clear resection margin. There is also osteomyelitis of the hallux with a clear disarticulation margin at the first MTP joint. Polymicrobial infection grew Bacteroides fragilis, Morganella morganii and Providencia. He is on parenteral cefepime. He is status post right lower extremity angioplasty and stenting today. He is resting comfortably with no pain to the extremity. He is afebrile with normal vitals. PHYSICAL EXAMINATION: Temperature 99.1, pulse 68, respirations 18, blood pressure 148/72. The postoperative wound is brown and yellow fibronecrotic tissue with no healthy granulation. There is no active bleeding noted. The third toe is cyanotic and gangrenous. The plantar skin flaps are cyanotic and necrotic at the margins. The foot is much warmer since the procedure. IMPRESSION: Osteomyelitis, left foot, with extensive deep tissue infection and soft tissue loss, type 2 diabetes mellitus. Peripheral arterial disease. PLAN: The wound was cleansed and re-dressed with sterile gauze. I discussed with vascular surgical team tonight regarding possible below-knee amputation. I feel this is in the patient's best interest at this point, although I am not opposed to attempting a foot salvage procedures such as a proximal transmetatarsal amputation. However, there is not enough soft tissue for any complete closure, and the tissue quality is very poor due to the deep tissue infection. The patient is not opposed to below knee amputation, and he is willing to discuss this with Vascular Surgery. I will see the patient tomorrow for further discussion. <ELECTRONICALLY SIGNED> By: Herman Mason DPM 10/17/18 1309 2124 1309Herman Mason DPM /nt
--- NOTE | 2018-10-17 14:20 | NUR ---
CONTINUE TO FOLLOW, MET WITH PT AND DISCUSSED WITH MARILU BELTRAN AND PAMELA. PT HAD FURTHER AMBUTATION OF FOOT YESTERDAY AND REVASCULARIZATION IN LEG. 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 HE LIVES WITH AN RN THAT WORKS IN A HOSPITAL AND STATES SHE CAN ASSIST HIM WITH NEEDS AT HOME. PT HAS NOT HAD THERAPY YET AND UNSURE OF DC NEEDS AT THIS TIME. MAY NEED HOME IV ANTIBX, PT WILLING TO DO THOSE AND IS AGREEABLE TO PREVIOUS COST THAT WAS QUOTED. DISCUSSED POSSIBLE HH OR SNF NEEDS. PT WOULD PREFER TO GO HOME WITH HH IF ABLE. DR SANTIAGO STATED PT WILL EVENTUALLY NEED WOUND VAC AND POSSIBLE HBO. CALL TO PT'S INSURANCE TO CHECK BENEFITS. FOR HH, SNF OR HBO, HIS COVERAGE IS: $500 DEDUCTIBLE, $4500 OUT OF POCKET WITH COVERAGE OF 80% AFTER DEDUCTIBLE MET. HAS MET $0 AT THIS TIME. SNF IN NETWORK ARE ANY I THE [employer] WHERE HE IS EMPLOYED IE: [facility]. HAVE REQUESTED A HH LIST AND WAITING FOR INSURANCE TO SEND THAT. WILL FOLLOW
[2018-10-17 21:00] VITALS: BP 138/78
[2018-10-18] VITALS: BP 143/73
[2018-10-18 04:00] VITALS: BP 139/67
--- NOTE | 2018-10-18 05:34 | NUR ---
VITALS STABLE, PATIENT SLEEPING THROUGH MOST OF THE NIGHT. PRN PAIN MEDS ADMINISTERED FOR PAIN. CALL LIGHT WITHIN REACH FOR SAFTEY.
--- NOTE | 2018-10-18 07:15 | NUR ---
CHANGE OF SHIFT BEDSIDE REPORT GIVEN PATIENT SEEN IN BED, RESTING ASSUMED PATIENT CARE
[2018-10-18 08:00] VITALS: BP 135/68
[2018-10-18 13:08] LABS: ABSOLUTE BASOPHILS 0.2 thou/uL (0.0-0.2); ABSOLUTE EOSINOPHILS 0.2 thou/uL (0.0-0.7); ABSOLUTE LYMPHOCYTES 1.1 thou/uL (0.8-5.3); ABSOLUTE MONOCYTES 0.8 thou/uL (0.0-1.2); ABSOLUTE NEUTROPHILS 5.8 thou/uL (1.6-8.1); BASOPHILS 2.1 %; EOSINOPHILS 2.9 %; HEMATOCRIT 29.2 % (42.0-52.0); HEMOGLOBIN 9.6 gm/dL (14.0-18.0); MCH 28.6 pg (26.0-34.0); MCHC 32.7 g/dL (28.0-37.0); MCV 87.5 fL (80.0-100.0); MPV 8.9 fl. (7.2-11.1); NUCLEATED RBCS 0 /100WBC; PLATELET COUNT* 393 thou/uL (150-400); RBC 3.34 mil/uL (4.50-6.00); RDW-CV 13.9 % (10.5-14.5); WBC 8.1 thou/uL (4.0-11.0)
[2018-10-18 13:20] LABS: CREATININE 1.1 mg/dL (0.6-1.3); POTASSIUM 4.4 mmol/L (3.5-5.1)
[2018-10-18 13:37] VITALS: BP 112/68
--- NOTE | 2018-10-18 14:47 | NUR ---
CONTINUE TO FOLLOW, MET WT PT AGAIN, DISCUSSED HOME WITH HH VS SNF. HE WANTS TO TRY TO RETURN HOME AT [place]. HAVE MADE MULTIPLE CALLS AND UNABLE TO FIND HH AGENCY IN NETWORK. SPOKE WITH INS PROVIDER, THEY GAVE CM WEBSITE [email or web address]. CALL TO [employer], SPOKE WITH BARBY AND GAVE INFO, SHE STATED THEY ARE A CO THAT CAN ASSIST WITH COORDINATION OF SERVICES, TOOK INFO AND WILL CALL CM BACK
[2018-10-18 16:45] VITALS: BP 124/62
[2018-10-18 20:00] VITALS: BP 120/60
[2018-10-19] VITALS: BP 136/76
[2018-10-19 04:00] VITALS: BP 140/69
--- NOTE | 2018-10-19 05:18 | NUR ---
patient progressing towards goals. attained pain of 0/10 this shift. started complaining of SOB around 0400 pt sounds wheeze on top lobes. Denies chest pain or pressure. called orders for breathing treatment q4h PRN and chest x-ray in A.M. pt refusing SCD education given. pt on plavix and aspirn PO. found new pressure wound on buttocks, pictures taken and wound RN notified, voice mail was left. pt currently in bed no voiced complains at this time. call light within reach, bed to lowest position.
[2018-10-19 08:00] VITALS: BP 155/65
--- NOTE | 2018-10-19 08:00 | NUR ---
AM ASSESSMENT COMPLETE, DEFER TO COMPTUER CHARTING. 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 ANXIOUS - REASSURANCE GIVEN. DRESSING CDI TO RIGHT FOOT SURGICAL SITE. FLAT AFFECT. HOB ELEVATED, CALL LIGHT WITHIN REACH. WILL MONITOR.
--- NOTE | 2018-10-19 11:19 | NUR ---
RECEIVED CALL BACK FROM [facility] THEY CAN ACCEPT PT'S INSURANCE. MADE HER AWARE PT GOING TO SNF NOW BUT WILL NEED HH AT [place] FROM THERE SPOKE WITH [facility], FAXED UPDATED THERAPY NOTES. WAITING ON FINAL APPROVAL FROM [facility], WILL CALL CM BACK
--- NOTE | 2018-10-19 13:09 | PATH ---
[place] [address] PATHOLOGY RPT PROCEDURE Name: NICK JACKSON Room: [address] IN .R.#: [id number] Admission: 10/10/18 Date of : 58 Discharge: Report #: [id number] Path Case #: [id number] L[facility] Accession Number: [id number] . 01 Material submitted: . RIGHT FORE FOOT . 01 Clinical history: . Osteomyelitis right foot . 02 Diagnosis: Right forefoot: - Portion of right forefoot including toes three through five with severe medial calcification of blood vessels and with nonspecific ulceration, necrosis and prominent acute inflammation of soft tissues and osteomyelitis of phalangeal bone of toes three and four. - Separate segments of bone consistent with metatarsals showing focal osteomyelitis. See comment. (NEGRO:pit 10/18/2018) QTP/10/18/2018 . 02 Comment: Osteomyelitis is seen near the disarticulation of toes three and four without marixa penetration through the articular surfaces. Osteomyelitis is also seen in segments of bone consistent with metatarsals (yellow and red inked) and in the separate submitted bone segment (A16-A17) and the black-inked transection edge of this latter segment is free of involvement. One end of the red-inked bone segment shows osteomyelitis and the opposite (articular end) is free of osteomyelitis. (NEGRO:[facility] 10/18/2018) . 02 Electronically signed: . Bruce Birmingham MD, Pathologist NPI- [id number] . 01 Gross description: . The specimen is received in formalin, labeled "Nick Jackson, right forefoot". Received is a partial forefoot amputation consisting of three digits (toes 3 through 5) an attached skin and soft tissue measuring 8.3 cm from proximal to distal, 5.5 cm from medial to lateral, and 4.8 cm from dorsal to plantar aspects. The bone margins are smooth and concave in appearance, consistent with disarticulation. The nails are present displaying a light de guzman and flaky to thickened appearance. The medial aspect of toe 3 is fletcher-black and necrotic in appearance, which grossly abuts the skin and soft tissue margin. Toe 3 displays an overall pink-red appearance. Toes 4 and 5 are pale de guzman and slightly flaky in appearance. The bone margins are inked as follows: Toe 3-black, toe 4-blue, toe 5-yellow. Also received within the [place] [address] PATHOLOGY RPT PROCEDURE Name: NICK JACKSON Room: [address] IN [facility].#: [id number] Admission: 10/10/18 Date of : 58 Discharge: Report #: [id number] Path Case #: [id number] metatarsals, three of which are attached to each other, measuring 7.4 x 7.3 x 2.2 cm in aggregate dimensions. There is a slight amount of attached light brown to slightly necrotic-appearing muscle. The bone margins are smooth and convex on one aspect and smooth and concave on the opposite aspect. The concave bone margins are inked yellow, red, orange, and green. One convex margin is fletcher-brown and jagged in appearance, and the suspected cartilage is from the underlying bone (the concave margin of this segment is inked red). . There is an additional segment of bone received within the specimen container displaying one smooth to slightly jagged cartilaginous covered margin and one blunt margin, consistent with transection, measuring 3.5 x 2.7 x 2.0 cm in greatest dimensions. The transected margin is pale de guzman and grossly unremarkable, and is inked black. The specimen is submitted representatively as follows: . A1 perpendicular section of skin and soft tissue margin of toe 3 A2-A4 full-thickness longitudinal cross-section of toe 3, from proximal to distal aspects, following decalcification A5-A7 full-thickness longitudinal cross-section of toe 4, from proximal to distal aspects, following decalcification A8-A9 full-thickness longitudinal cross-section of toe 5, from proximal to distal aspects, following decalcification A10 longitudinal cross-section of concave bone margin of metatarsal with yellow inked margin, following decalcification A11-A13 full-thickness longitudinal cross-section of bone margin of metatarsal with red inked margin, submitted from concave to convex/jagged aspects, following decalcification A14 longitudinal cross-section of concave bone margin of metatarsal with orange inked margin, following decalcification A15 longitudinal cross-section of concave bone margin of metatarsal with green inked margin, following decalcification A16-A17 longitudinal cross-section of transected margin of separately submitted segment of bone with black inked margin, from transected to articular aspects, following decalcification. (CAA; 10/17/2018) QAC/QAC . 02 Pathologist provided ICD-10: L97.519, L08.9, M86.171 . 02 CPT . 812236, [id number] Specimen Comment: A courtesy copy of this report has been sent to Specimen Comment: [phone], . Specimen Comment: Report sent to DR FIERRO / DR SANTOS Performed at: [address], [place] [id number] [place] [address] PATHOLOGY RPT PROCEDURE Name: NICK JACKSON Room: [address] IN [facility]#: [id number] Admission: 10/10/18 Date of : 58 Discharge: Report #: [id number] Path Case #: [id number] MD Darwin Owen MD Phone: [phone] [facility]formed [facility]: [facility] [address] SARAH Archuleta [id number] MD Bruce Birmingham MD Phone: [phone]
--- NOTE | 2018-10-19 16:46 | NUR ---
WOUND CARE NOTE: CONSULT RECEIVED FOR NEW OPEN WOUND ON LEFT BUTTOCK. PATIENT PRESENTS WITH A PARTIAL THICKNESS LESION TO THE LEFT BUTTOCK MEASURING APPROXIMATELY 0.7X0.5X0.1. WOUND BED IS PINK, MOIST. MONCHO-WOUND IS NON-VIABLE SKIN FLAP. BELIEVE THIS AREA MAY BE FROM FRICTION--PATIENT HAS TO SCOOT MORE DURING TRANSFERS. GENTLY CLEANSED AREA WITH WOUND CLEANSER, PATTED DRY. APPLIED MARATHON TO ALLOW THE TISSUE UNDERNEATH TO HEAL. PATIENT TOLERATED DRESSING CHANGE WELL. DRESSING TO RIGHT FOOT CHANGED. PCP AND VASCULAR SEARCH MARKETING COORDINATOR IN TO ASSESS DURING DRESSING REMOVAL. WOUND WAS CLEANSED WITH WOUND CLEANSER, PATTED DRY. APPLIED AQUACEL AG TO WOUND BED AND COVERED WITH ABD. SECURED WITH KERLIX THEN MANDA. LATERAL ASPECT OF WOUND IS CLOSED, SUTURES IN PLACE. WOUND BED IS RED, MOIST, GEL FOAM IN PLACE-LEFT INTACT. MONCHO-WOUND IS INFLAMMED. WOUND EDGES WITH VISIBLE SUBQ TISSUE. DORSAL ASPECT OF MONCHO-WOUND WITH SOME DISCOLORATION. MEDIAL ASPECT OF MONCHO-WOUND WITH SOME MACERATION. EDUCATED PATIENT ON SHIFTING WEIGHT AND ATTEMPTING TO LIFT SELF AND NOT SCOOT, COMMUNICATED UNDERSTANDING. ALSO EDUCATED PATIENT TO ONLY BEAR WEIGHT ON HIS HEEL. EDUCATED ON IMPORTANCE OF KEEPING SUGARS CONTROLLED AND NUTRTION FOR WOUND HEALING, COMMUNICATED UNDERSTANDING. PATIENT VERY ANXIOUS TO HEAL FOOT. VERY EXCITED TO GO TO FACILITY ON MONDAY. RECOMMEND ENCOURAGE GOOD NUTRITION/HYDRATION TIGHT BLOOD GLUCOSE CONTROL HEEL WEIGHT BEARING ONLY TO RIGHT FOOT-BEST IF NWB TURN Q2 HOURS WAFFLE CUSHION WHEN IN CHAIR LEAVE MARATHON IN PLACE UNTIL COMES OFF ON OWN.
--- NOTE | 2018-10-19 17:34 | NUR ---
ENVIRONMENTAL EDUCATION SPECIALIST TRACKING WITH NO CHANGE IN RHYTHM. UP IN CHAIR AT THIS TIME, DRESSING CDI TO RIGHT FOOT. TOELRATING DIET. 02 2L PER NC. CALL LIGHT REMAINS WITHIN REACH. WILL CONTINUE WITH PLAN OF CARE.
[2018-10-19 19:15] VITALS: BP 153/70
--- NOTE | 2018-10-19 22:30 | NUR ---
ASSUMED CARE FROM EDEN-FLAVIA, AGREE WITH ELECTRONIC SHIFT ASSESSMENT BY MAE. PT AWAKE, ALERT, CONVERSATIVE SITTING UP IN CHAIR, REQUESTING OXYCODONE IR 5MG PO FOR RIGHT FOOT PAIN. WILL GIVE OXYCODONE IR 5MG WHEN ABLE PER ORDER. STATES BENDADRYL GIVEN BY EDEN ALEJANDRO HELPFUL FOR SOA. RESP EVEN AND NONLABORED ON 3L OXYGEN PER NC. INSTRUCTED USE OF CALL LIGHT FOR NEEDS, WANTS, AMBULATION, OR PAIN. CALL LIGHT IN REACH, WILL CONTINUE TO MONITOR.
[2018-10-20] VITALS: BP 137/77
[2018-10-20 04:00] VITALS: BP 164/87
--- NOTE | 2018-10-20 07:00 | NUR ---
RESTING QUIELTY WITH EYES CLOSED MOST OF NOC, OXYCODE IR 5MG PO GIVEN HS EFFECTIVE FOR PAIN MANAGMENT RLE, NO ADVERSE EFFECTS IV ABT NOTED, AWAKE, ALERT AND CONVERSTIVE THIS AM, CALL LIGHT IN REACH.
[2018-10-20 08:00] VITALS: BP 154/76
--- NOTE | 2018-10-20 08:00 | NUR ---
ASSUMED PT CARE AT 0700, PT SITTING UP IN BED, CALL LIGHT IN REACH. A&O X4, VSS, TITRATED O2 DOWN TO 3LPM, PT TOLERATED WELL REMAINING AT 94%. DRESSING TO RIGHT FOOT CLEAN, DRY, AND INTACT. C/O PAIN 7/10, PRN PAIN MEDS GIVEN WITH GOOD RESULTS. REMAINS NON WT BEARING ON RIGHT FOOT, TOLERATING WELL. WILL CONT POC.
[2018-10-20 12:00] VITALS: BP 148/70
--- NOTE | 2018-10-20 13:48 | NUR ---
RECVD ORDERS FOR PT TO DISCHARGE, UNABLE TO CONTACT ANY FAMILY AT MULTIPLE DIFFERENT NUMBERS, LEFT MESSAGES, AWAITING CALL BACK.
[2018-10-20 16:00] VITALS: BP 144/70
--- NOTE | 2018-10-20 18:39 | NUR ---
PT UP IN CHAIR, BLE ELEVATED, CALL LIGHT IN REACH, FALL PRECAUTIONS IN PLACE. VSS, REMAINS ON O2 AT 3LPM. HOURLY ROUNDS COMPLETED, GOALS OF SAFETY AND PAIN CONTROL MAINTAINED.
[2018-10-20 19:40] VITALS: BP 141/76
[2018-10-21] VITALS: BP 157/86
[2018-10-21] MEDS ORDERED: LEVEMIR SUBQ (07:24)
[2018-10-21] MEDS ORDERED: METFORMIN HCL500 MG PO (07:24)
[2018-10-21] MEDS ORDERED: COZAAR 25 MG TA25 M2 PO ×2 (07:24)
[2018-10-21] MEDS ORDERED: NEURONTIN 300300 M1 PO (07:24)
[2018-10-21] MEDS ORDERED: LOPRESSOR50 PO (07:24)
--- NOTE | 2018-10-21 08:00 | NUR ---
ASSUMED PT CARE AT 0700, PAPER PRODUCTS MACHINE OPERATOR TRACING SINUS RHYTHM, LS COARSE WITH WHEEZING, RT PRESENT, TITRATED O2 TO 6LPM FOR O2 SAT 94% AND ADMINISTERED BREATHING TX. DR FIERRO NOTIFIED, NEW ORDERS FOR IVP LASIX X1. DENIES ANY PAIN AT THIS TIME, FOOT REMAINS DRESSED AND WRAPPED. UP WITH ASSIST X1 AND WALKER. WILL CONT POC
[2018-10-21 12:00] VITALS: BP 130/72
[2018-10-21 16:00] VITALS: BP 113/57
[2018-10-21 19:30] VITALS: BP 119/89
--- NOTE | 2018-10-21 19:48 | NUR ---
PT REMAINS ON O2 AT 6LPM, SATS REMAIN 94%, VSS. DR WALL IN TO ASSESS SURGICAL WOUND AND RE-WRAP, PICTURES TAKEN. PT UP WITH ASSIST X1 AND WALKER, CONT NON WEIGHT BEARING ON RLE, HOURLY ROUNDING COMPLETED.
[2018-10-22] VITALS: BP 114/54
[2018-10-22 04:00] VITALS: BP 144/79
--- NOTE | 2018-10-22 04:53 | NUR ---
VITALS WNL. SEE MAR. SEE CHARTING. FALL PRECAUTIONS IN PLACE. HOURLY ROUNDING FOR SAFETY.
[2018-10-22 08:11] VITALS: BP 141/79
[2018-10-22] MEDS ORDERED: HYDROCODON-ACE1 EAC7 PO (08:53)
[2018-10-22] MEDS ORDERED: CLOPIDOGREL75 MG PO (08:53)
[2018-10-22] MEDS ORDERED: ASPIR 8181 MG PO (08:53)
[2018-10-22] MEDS ORDERED: ALEVE220 MG PO (08:53)
--- NOTE | 2018-10-22 10:19 | NUR ---
ASSUMED CARE OF PT THIS AM AROUND 0715- PHOTOGRAPHIC ARTIST IN PLACE ORDERED, TRACING SR- UPON ASSESSMENT PT NOTED TO BE RESTING IN BED, WATCHING TV- PT A&O X4- CONTINENT OF BOWEL AND BLADDER, USING URINAL AT BEDSIDE- ASSIST X1 WITH TRANSFERS- LCTA, DIMINISHED IN BASES- VSS, O2 SAT 93% ON 3L VIA NC-ABD SOFT/ROUND/NON-TENDER, BS X4 QUADS- LAST BM REPORTED 10/21/18-GOOD PO INTAKE NOTED THIS AM WITH BREAKFAST, BS MONITORED ORDERED- PICC NOTED TO RIGHT UE INTACT AND SL- +1 BLE PITTING EDEMA NOTED- RL FOOT WITH C/D/I DRESSING NOTED INTACT, DUE TO BE CHANGED PER PHYSICAIN THIS SHIFT- FLAGYL D/C'D THIS AM PER - PT RATES PAIN 02/23 THIS AM, PRN OXY GIVEN AT 0858- PT REPORTS MEDICATION TO BE EFFECTIVE- CALL LIGHT AND PERSONAL BELONGINGS WITH IN REACH- HOURLY ROUNDS IN PLACE R/T SAFETY/NEEDS- ALL NEEDS MET AT THIS TIME-WCTM
--- NOTE | 2018-10-22 11:10 | NUR ---
CM spoke with Yv at [facility], they continue to await verification of what Pt's out of pocket responsibility will be for skilled. CM informed Vy that Pt is ready to dc today, Vy to update CM once verification is confirmed. Following.
[2018-10-22 12:18] VITALS: BP 134/69
[2018-10-22 16:59] VITALS: BP 121/66
--- NOTE | 2018-10-22 17:21 | NUR ---
PT CURRENTLY RESTING IN BED SIDE RECLINER, WATCHING TV- CUTTER OPERATOR HELPER IN PLACE AND CONTINUED INDICATED, TRACING SR- RUE PICC NOTED INTACT AND SL- IV ABT GIVEN PRESCIBED- PRN OXY GIVEN PER PT REQUEST, LAST DOSE AT 1455- PT REPORTS PAIN MEDICATION TO BE EFFECTIVE- ISOLATION IN PLACE AND MAINTAINED [place]- GOOD P0 INTAKE NOTED THIS SHIFT WITH MEALS- BS MONITORED ORDERED- PT MAKES NEEDS KNOWN- ALL NEEDS MET AT THIS TIME-WCTM
[2018-10-22 19:30] VITALS: BP 137/70
[2018-10-23] VITALS: BP 145/84
[2018-10-23 04:00] VITALS: BP 146/87
--- NOTE | 2018-10-23 05:06 | NUR ---
VITALS WNL. SEE MAR. SEE CHARTING. FALL PRECAUTIONS IN PLACE. HOURLY ROUNDING FOR SAFETY.
[2018-10-23 07:30] VITALS: BP 169/93
--- NOTE | 2018-10-23 10:15 | NUR ---
Pt discharging to [facility] skilled today. [facility] transportation to hand picker between 4-430. Updated Pt and nurse. Faxed dc orders. Chart copied. Nurse report number is [phone]. Pt to update friend of disposition.
[2018-10-23] MEDS ORDERED: CEFTRIAXON1 GM/50 M1 IV (10:16)
[2018-10-23] MEDS ORDERED: OXYCODONE HCL 55 MG PO (10:16)
[2018-10-23 10:18] VITALS: BP 169/93
[2018-10-23 13:25] VITALS: BP 115/66
--- NOTE | 2018-10-23 16:09 | NUR ---
CALLED REPORT TO WESLEY AT [facility]. PATIENT SHOWERED AND DRESSED IN HIS OWN CLOTHES. ALL HIS BELONGINGS PACKED AND LEAVING WITH PATIENT. NO QUESTIONS OR CONCERNS AT TIME OF DISCHARGE. LEAVING VIA WHEELCHAIR VAN.
--- NOTE | 2018-10-24 13:01 | CON ---
[facility] [address] [place] [address] CONSULTATION Name: NICK REYNOSO Room: [address] IN M.R.#: [id number] Admission: 10/10/18 Attend Phys: Sp Steiner Discharge: 10/23/18 Date of : 58 Report #: [id number] THIS REPORT FOR: //name// CC: Fred Garcia DATE OF SERVICE: 10/22/2018 CHIEF COMPLAINT: Postoperative right Lisfranc's amputation due to osteomyelitis complicated by diabetes mellitus. He is on 2 liters of oxygen. Surgical cultures grew Bacteroides and Morganella species. Pain is well controlled on p.o. hydrocodone. He has been afebrile with stable vitals. No new labs for review. PHYSICAL EXAMINATION: EXTREMITIES: No active bleeding from open surgical site. No dehiscence, fluctuance, crepitation or signs of acute vascular embarrassment. Immediate leeanna-incisional capillary refill, low grade inflammation at the wound margins with no marixa cellulitis. IMPRESSION: Osteomyelitis, right foot, status post Lisfranc's amputation with open postoperative wound. PLAN: Excisional ulcer debridement performed to the medial aspect of the wound with scissors and forceps to remove subcutaneous tissue and slough. The wound was cleansed and dressed with Aquacel Ag, ABDs, Kerlix and Jose bandage. The patient to be discharged to retirement facility per Medicine. I will follow up with him next week at [facility] with Dr. Gerardo Sawyer. <ELECTRONICALLY SIGNED> By: Herman Mason DPM 10/24/18 1301 1208 [id number] Mason DPM /nt
--- NOTE | 2018-10-24 13:01 | OP ---
[facility] [address] [place] [address] OPERATIVE REPORT Name: UMAIR REYNOSOZAINAB Grant Room: [address] IN .R.#: [id number] Admission: 10/10/18 Attend Phys: Sp Steiner Discharge: 10/23/18 Date of : 58 Report #: [id number] THIS REPORT FOR: //name// CC: Fred Garcia DATE OF SERVICE: 10/16/2018 SURGEON: Herman Mason DPM PREOPERATIVE DIAGNOSIS: Osteomyelitis with deep tissue infection, right foot. POSTOPERATIVE DIAGNOSIS: Osteomyelitis with deep tissue infection, right foot. PROCEDURE: 1. Lisfranc tarsometatarsal amputation, right foot. 2. Incision and drainage, right foot. 3. Skin flap lateral right foot. ANESTHESIA: General endotracheal. INJECTABLES: 30 mL of a 1:1 mixture of 0.5% Marcaine plain and 1% lidocaine plain. ESTIMATED BLOOD LOSS: Roughly 2 mL. HEMOSTASIS: Right calf tourniquet at 300 mmHg. SUTURES: 2-0 nylon, 3-0 nylon. SPECIMENS: Right distal forefoot, metatarsals, metatarsals and toes (see surgical pathology report). CULTURES: 1. Bone, right third metatarsal, aerobic and anaerobic. 2. Soft tissue, right foot, aerobic and anaerobic. COMPLICATIONS: None. DESCRIPTION OF PROCEDURE: The patient was brought to the OR and placed on the table supine with induction of MAC anesthesia. A well-padded right calf tourniquet was placed and the right ankle block was given. The extremity was prepped and draped aseptically and exsanguinated with inflation of the tourniquet. A #10 blade was used to create a circumferential incision around the right distal foot with preservation of as much viable tissues possible to facilitate for skin flap closure. I retracted the [place] [address] OPERATIVE REPORT Name: NICK REYNOSO Room: [address]#: [id number] Admission: 10/10/18 Attend Phys: Sp Steiner Discharge: 10/23/18 Date of : 58 Report #: [id number] and disarticulated the first through fifth metatarsals from their respective tarsal bones. The extensor and flexor tendons were debrided as well as all devitalized, necrotic and infected tissue. Electrocautery was utilized for hemostasis. The skin margins were remodeled to facilitate closure at the lateral aspect of the foot. There is not enough viable soft tissue to close the medial 50% of the wound. The wound was flushed with 1 liter of sterile saline with 50,000 units of bacitracin. A plantar lateral skin flap was mobilized and sutured to the dorsal lateral foot with 2-0 and 3-0 nylon roughly 40% of the surgical wound was closed in this fashion. The medial aspect of the surgical wound did not have enough soft tissue for closure. Gelfoam was placed to the open medial foot wound and it was covered with Aquacel Ag, ABDs, Kerlix, and Jose. The tourniquet was deflated with vascular return to the foot. The patient left the OR alert and oriented with no pain or complications noted. <ELECTRONICALLY SIGNED> By: Herman Mason DPM 10/24/18 1301 1330 [id number] Mason DPM /nt
--- NOTE | 2018-10-24 13:01 | CON ---
[facility] [address] [place] [address] CONSULTATION Name: NICK REYNOSO Room: [address] IN M.R.#: [id number] Admission: 10/10/18 Attend Phys: Sp Steiner Discharge: 10/23/18 Date of : 58 Report #: [id number] THIS REPORT FOR: //name// CC: Fred Garcia DATE OF SERVICE: 10/19/2018 CHIEF COMPLAINT: Status post right Lisfranc's amputation for osteomyelitis. Surgical cultures growing Morganella, he is on parenteral ceftriaxone. He has remained nonweightbearing using a knee walker. Status post right SFA angioplasty and stenting. Surgical pathology reveals osteomyelitis of phalangeal bones of toes 3 and 4 as well as the distal metatarsals with clear disarticulation sites. LABORATORY DATA: WBC 8.1, RBC 3.34, hemoglobin 9.6, hematocrit 29.2, platelets 393. BUN 25, creatinine 1.1, glucose 151. PHYSICAL EXAMINATION: The foot bandage was changed earlier today by Lillian Mccann, the wound nurse. I reviewed today's photographs. The wound bed has red healthy tissue with some fiber necrosis. The skin margins are viable with no pallor, cyanosis or necrosis. The foot is warm with no signs of acute vascular embarrassment. PLAN: The patient started to remain strictly nonweightbearing to the extremity. He will require topical wound care and a wound VAC to assist granulation and closure. He is tentatively scheduled for discharge on Monday to a custodial facility in [place], [place]. <ELECTRONICALLY SIGNED> By: Herman Mason DPM 10/24/18 1301 1629 [id number] Mason DPM /nt
--- NOTE | 2018-10-24 13:01 | CON ---
[facility] [address] [place] [address] CONSULTATION Name: NICK REYNOSO Room: [address] IN .R.#: [id number] Admission: 10/10/18 Attend Phys: Sp Steiner Discharge: 10/23/18 Date of : 58 Report #: [id number] THIS REPORT FOR: //name// CC: Fred Garcia DATE OF SERVICE: 10/17/2018 CHIEF COMPLAINT: Postoperative day #1 for Lisblayne's tarsometatarsal disarticulation amputation. He had an osteomyelitis with deep tissue infection with postoperative wound. He was revascularized prior to yesterday's revisional foot surgery. He relates moderate pain improved on Dilaudid and hydrocodone. He is afebrile with stable vitals, has good appetite. He has remained nonweightbearing. There has been no strikethrough to the surgical bandage. He is on parenteral cefepime with good tolerance. Surgical pathology and cultures are pending. Initial surgical cultures grew Bacteroides, Morganella and Providencia. No new labs for review. PHYSICAL EXAMINATION: Temperature 98.1, pulse 66 and blood pressure 94/61. There is no active bleeding from the open surgical wound. There is Gelfoam packed into the open region, which is roughly 60% of the surgical wound. The lateral sutures are intact with no pallor or cyanosis in the leeanna-incision. Minimal inflammation of the wound margins with no marixa cellulitis, no signs of acute vascular embarrassment. The foot is warm, no fluctuance or crepitation. IMPRESSION: Status post right Lisfranc tarsometatarsal amputation with partial primary closure. PLAN: The wound was cleansed and redressed with Aquacel Ag, ABDs, Kerlix and Jose bandage. I recommend outpatient hyperbaric oxygen therapy in addition to a KCI wound vacuum to facilitate granulation over the open surgical wound. He is to remain strictly nonweightbearing to the extremity and elevate it. Maximize nutrition and glycemic control. <ELECTRONICALLY SIGNED> By: Herman Mason DPM 10/24/18 1301 1324 [id number] Mason DPM /nt
--- NOTE | 2018-10-24 13:01 | CON ---
[address] [address] CONSULTATION Name: NICK REYNOSO Room: [address] IN M.R.#: [id number] Admission: 10/10/18 Attend Phys: Sp Steiner Discharge: 10/23/18 Date of : 58 Report #: [id number] THIS REPORT FOR: //name// CC: Fred Garcia DATE OF SERVICE: 10/21/2018 CHIEF COMPLAINT: Followup of Lisblayne's amputation on the right foot due to osteomyelitis postop. Surgical cultures grew morganella species, he is on parenteral ceftriaxone and Flagyl. He has been afebrile with stable vitals, he is on 6 liters of oxygen, chest x-ray ordered. Denies fevers, chills, nausea or malaise. Surgical pathology shows osteomyelitis of the metatarsals with clear disarticulation margins. No new labs for review. PHYSICAL EXAMINATION: VITAL SIGNS: Temperature 99.0, pulse 81, respirations 18, blood pressure 161/85. EXTREMITIES: Postoperative wound has red granulation with mixed areas of yellow fibrin necrosis. Gelfoam is intact over the exposed cuneiform bones. There is no active bleeding. There is immediate periwound capillary refill with low grade inflammation along the wound margins improved since postoperative day #1 and there is no pallor, cyanosis or signs of acute vascular embarrassment. The foot is warm, substantially improved temperature since prior to his angioplasty and stenting. IMPRESSION: Status post right Lisfranc's amputation with osteomyelitis, type 2 diabetes mellitus, peripheral artery disease. PLAN: The wound was cleansed and redressed with Aquacel Ag, ABDs, Kerlix, and Jose bandage. The patient to remain strictly nonweightbearing to the extremity. I will follow him during his hospitalization. Likely discharge to [facility] facility next week. <ELECTRONICALLY SIGNED> By: Herman Mason DPM 10/24/18 1301 1040 [id number] Mason DPM /nt
--- NOTE | 2018-10-25 09:09 | NUR ---
JENARO RECEIVED FROM [facility] INQUIRING ABOUT PT. THEY HAD A REFERRAL TO DO HOME HEALTH FOR HIM AT DISCHARGE. CALLED HER BACK AND LEFT AT [phone]. INFORMED HER PT.WENT TO [facility] FOR SKILLED STAY AT DISCHARGE.
== END 2018-10-23 16:17 | DRG 239 ==
LOC: M.ERS 09:30 → M.2W 10:28 → M.TBA-ER 10:28 → M.2W 11:38
PROVIDERS: Internal Medicine; Internal Medicine Infectious Disease; Personal Emergency Response Attendant; Specialist; ADMIT Internal Medicine
PROC: 0Y6P0Z0 Detachment at Right 1st Toe, Complete, Open Approach (ICD-10-PCS; principal; 2018-10-10)
PROC: 0Y6R0Z0 Detachment at Right 2nd Toe, Complete, Open Approach (ICD-10-PCS; principal; 2018-10-10)
PROC: 02HV33Z Insertion of Infusion Device into Superior Vena Cava, Percutaneous Approach (ICD-10-PCS; 2018-10-12)
PROC: 047R3ZZ Dilation of Right Posterior Tibial Artery, Percutaneous Approach (ICD-10-PCS; 2018-10-15)
PROC: 047K3DZ Dilation of Right Femoral Artery with Intraluminal Device, Percutaneous Approach (ICD-10-PCS; 2018-10-15)
PROC: 047M3DZ Dilation of Right Popliteal Artery with Intraluminal Device, Percutaneous Approach (ICD-10-PCS; 2018-10-15)
PROC: 047T3ZZ Dilation of Right Peroneal Artery, Percutaneous Approach (ICD-10-PCS; 2018-10-15)
PROC: B4101ZZ Fluoroscopy of Abdominal Aorta using Low Osmolar Contrast (ICD-10-PCS; 2018-10-15)
PROC: 02HV33Z Insertion of Infusion Device into Superior Vena Cava, Percutaneous Approach (ICD-10-PCS; 2018-10-16)
PROC: 0Y6M0Z0 Detachment at Right Foot, Complete, Open Approach (ICD-10-PCS; 2018-10-16)
PROC: 0HXMXZZ Transfer Right Foot Skin, External Approach (ICD-10-PCS; 2018-10-16)
DX: E11.52 Type 2 diabetes mellitus with diabetic peripheral angiopathy with gangrene (principal); I50.21 Acute systolic (congestive) heart failure; M86.8X7 Other osteomyelitis, ankle and foot; L03.115 Cellulitis of right lower limb; I96 Gangrene, not elsewhere classified; I13.0 Hypertensive heart and chronic kidney disease with heart failure and stage 1 through stage 4 chronic kidney disease, or unspecified chronic kidney disease; E11.621 Type 2 diabetes mellitus with foot ulcer; L97.519 Non-pressure chronic ulcer of other part of right foot with unspecified severity; E11.42 Type 2 diabetes mellitus with diabetic polyneuropathy; N18.2 Chronic kidney disease, stage 2 (mild); E11.22 Type 2 diabetes mellitus with diabetic chronic kidney disease; E11.69 Type 2 diabetes mellitus with other specified complication; I25.10 Atherosclerotic heart disease of native coronary artery without angina pectoris; Z86.14 Personal history of Methicillin resistant Staphylococcus aureus infection; Z87.891 Personal history of nicotine dependence; Z95.1 Presence of aortocoronary bypass graft; Z79.4 Long term (current) use of insulin; Z79.899 Other long term (current) drug therapy; Z88.0 Allergy status to penicillin

== ENCOUNTER → 2018-10-31 | Outpatient (CLI) | payer OTHER ==
[~2018-10-31] MED LIST: ALEVE220 MG PO; ASPIR 8181 MG PO; CEFTRIAXON1 GM/50 M1 IV; CLOPIDOGREL75 MG PO; COZAAR 25 MG TA25 M1 PO; COZAAR 25 MG TA25 M2 PO; HYDROCODON-ACE1 EAC7 PO; LEVEMIR SUBQ; LOPRESSOR50 PO; METFORMIN HCL500 MG PO; NEURONTIN 300300 M1 PO; OXYCODONE HCL 55 MG PO
== END ==
LOC: M.WC 13:45
DX: T87.89 Other complications of amputation stump (principal); E11.621 Type 2 diabetes mellitus with foot ulcer; L97.512 Non-pressure chronic ulcer of other part of right foot with fat layer exposed; E11.42 Type 2 diabetes mellitus with diabetic polyneuropathy; E11.69 Type 2 diabetes mellitus with other specified complication; M86.371 Chronic multifocal osteomyelitis, right ankle and foot; E11.52 Type 2 diabetes mellitus with diabetic peripheral angiopathy with gangrene; I96 Gangrene, not elsewhere classified; I10 Essential (primary) hypertension; Z95.820 Peripheral vascular angioplasty status with implants and grafts; Z95.1 Presence of aortocoronary bypass graft; Y83.5 Amputation of limb(s) as the cause of abnormal reaction of the patient, or of later complication, without mention of misadventure at the time of the procedure

== ENCOUNTER → 2018-11-14 | Outpatient (CLI) | payer OTHER ==
[2018-11-14 14:54] LABS: ABSOLUTE EOSINOPHILS 0.5 thou/uL (0.0-0.7); ABSOLUTE LYMPHOCYTES 1.7 thou/uL (0.8-5.3); ABSOLUTE MONOCYTES 0.6 thou/uL (0.0-1.2); ABSOLUTE NEUTROPHILS 4.1 thou/uL (1.6-8.1); BASOPHILS 0.4 %; EOSINOPHILS 7.2 %; HEMATOCRIT 35.5 % (42.0-52.0); HEMOGLOBIN 11.7 gm/dL (14.0-18.0); LYMPHOCYTES 23.9 %; MCH 28.3 pg (26.0-34.0); MCV 85.7 fL (80.0-100.0); MONOCYTES 9.1 %; MPV 8.9 fl. (7.2-11.1); NUCLEATED RBCS 0 /100WBC; PLATELET COUNT* 292 thou/uL (150-400); POLYS 59.4 %; RBC 4.14 mil/uL (4.50-6.00); RDW-CV 14.3 % (10.5-14.5)
[2018-11-14 15:08] LABS: ALBUMIN 3.3 g/dL (3.4-5.0); CREATININE 1.1 mg/dL (0.6-1.3); POTASSIUM 4.1 mmol/L (3.5-5.1); TOTAL BILIRUBIN 0.3 mg/dL (<0.1-1.0); TOTAL PROTEIN 7.9 g/dL (6.4-8.2)
[2018-11-14 16:00] LABS: ESR (SEDRATE) 45 mm/hr (0-20)
--- NOTE | 2018-11-15 11:07 | CON ---
[address] [address] CONSULTATION Name: NICK REYNOSO Room: [facility] UMAIR Geraldine#: [id number] Admission: 11/14/18 Attend Phys: Herman Mason DPM Discharge: Date of : 58 Report #: [id number] THIS REPORT FOR: //name// CC: Herman Wright DATE OF SERVICE: 11/14/2018 ATTENDING PHYSICIAN: Herman Mason DPM HISTORY OF PRESENT ILLNESS: He is seen in the outpatient Wound Care Center at [place], [place]. The patient returns today in followup. He is postop right transmetatarsal amputation with evidence of ongoing issues of incisional dehiscence with wound necrosis, raising significant questions of whether there is adequate vascularity. He actually denies any significant discomfort at this point. He has not been systemically ill. He states his appetite is good. His blood sugars have been somewhat variable, although improved. He had completed a course of roughly 4 weeks of parenteral therapy with ceftriaxone 2 grams daily. Examination of the wound, again is dehisced across the extent of it. Some moderate degree of inflammation. I do not appreciate any odor. There is no purulence. Does have appearance of ischemia. Right foot deep seated infection. He is post transmetatarsal amputation. It is noted he is scheduled to follow up with Dr. Harrison, vascular surgeon, I think the discussion primarily will be about the necessity of wbvvn-ynd-[id number] amputation at this point. We will continue the ceftriaxone at least the next week, pending that visit. In the interim, if he has any worsening signs or symptoms, he is instructed to call the Wound Care Center. Continue offloading and wound care as prescribed by Dr. Mason. <ELECTRONICALLY SIGNED> By: Gerardo Sawyer MD 11/15/18 1107 1704 0400Johardik Sawyer MD /nt
== END ==
LOC: M.WC 11-07 14:00
PROVIDERS: Podiatrist Foot & Ankle Surgery
DX: T87.89 Other complications of amputation stump (principal); E11.621 Type 2 diabetes mellitus with foot ulcer; L97.512 Non-pressure chronic ulcer of other part of right foot with fat layer exposed; L84 Corns and callosities; E11.42 Type 2 diabetes mellitus with diabetic polyneuropathy; E11.52 Type 2 diabetes mellitus with diabetic peripheral angiopathy with gangrene; I96 Gangrene, not elsewhere classified; E11.69 Type 2 diabetes mellitus with other specified complication; M86.371 Chronic multifocal osteomyelitis, right ankle and foot; Z95.1 Presence of aortocoronary bypass graft; Y83.5 Amputation of limb(s) as the cause of abnormal reaction of the patient, or of later complication, without mention of misadventure at the time of the procedure

== ENCOUNTER → 2018-11-21 | Outpatient (CLI) | payer OTHER | LOC: M.WC 09:30 | DX: T87.89 Other complications of amputation stump (principal); E11.621 Type 2 diabetes mellitus with foot ulcer; L97.524 Non-pressure chronic ulcer of other part of left foot with necrosis of bone; L97.516 Non-pressure chronic ulcer of other part of right foot with bone involvement without evidence of necrosis; E11.42 Type 2 diabetes mellitus with diabetic polyneuropathy; E11.69 Type 2 diabetes mellitus with other specified complication; M86.371 Chronic multifocal osteomyelitis, right ankle and foot; E11.52 Type 2 diabetes mellitus with diabetic peripheral angiopathy with gangrene; I96 Gangrene, not elsewhere classified; I10 Essential (primary) hypertension; Z95.820 Peripheral vascular angioplasty status with implants and grafts; Y83.5 Amputation of limb(s) as the cause of abnormal reaction of the patient, or of later complication, without mention of misadventure at the time of the procedure ==

== ENCOUNTER → 2018-11-28 | Outpatient (CLI) | payer OTHER ==
[2018-11-28 11:59] LABS: ALBUMIN 3.5 g/dL (3.4-5.0); CALCIUM 9.3 mg/dL (8.5-10.1); CREATININE 1.1 mg/dL (0.6-1.3); TOTAL BILIRUBIN 0.2 mg/dL (<0.1-1.0); TOTAL PROTEIN 7.4 g/dL (6.4-8.2)
== END ==
LOC: M.WC 05:17
PROVIDERS: Surgery
DX: T87.89 Other complications of amputation stump (principal); E11.621 Type 2 diabetes mellitus with foot ulcer; L97.514 Non-pressure chronic ulcer of other part of right foot with necrosis of bone; E11.69 Type 2 diabetes mellitus with other specified complication; M86.371 Chronic multifocal osteomyelitis, right ankle and foot; E11.42 Type 2 diabetes mellitus with diabetic polyneuropathy; E11.52 Type 2 diabetes mellitus with diabetic peripheral angiopathy with gangrene; I96 Gangrene, not elsewhere classified; I10 Essential (primary) hypertension; Y83.5 Amputation of limb(s) as the cause of abnormal reaction of the patient, or of later complication, without mention of misadventure at the time of the procedure

== ENCOUNTER → 2018-12-05 | Outpatient (CLI) | payer OTHER ==
--- NOTE | 2018-12-07 07:08 | CON ---
[address] [address] CONSULTATION Name: ANGELESNICK [id number] Admission: 12/05/18 Attend Phys: Herman Mason DPM Discharge: Date of : 58 Report #: [id number] THIS REPORT FOR: //name// CC: Herman Wright DATE OF SERVICE: 12/05/2018 INFECTIOUS DISEASE CONSULTATION: ATTENDING PHYSICIAN: Herman Mason DPM. This is a followup seen at the outpatient wound care center at [place], [place]. HISTORY OF PRESENT ILLNESS: He is here for followup of right foot wound involving the transmetatarsal amputation site medial aspect. He denies significant amount of pain or discomfort. On review of the records, he had initial evaluation in the hospital. He did have surgery on 10/16/2018. At that point, it was confirmed to have osteomyelitis. He has been on therapy with parenteral ceftriaxone in the interim roughly 7 weeks. He continues to show some degree of improvement in terms of the overall dimension of the wound, although Dr. Mason evaluated and still has exposed bone. He denies significant amount of discomfort. In addition to Dr. Mason, he has been following with Dr. Harrison, vascular surgeon, who has not recommended any additional surgery, which essentially would be a yjrqd-zcr-tiqc amputation to this point, given he feels there is adequate tissue perfusion at the site. Chronic osteomyelitis. Did have discussion with Dr. Mason. Asked him if he could get a piece of the exposed bone and send it for culture to reevaluate if there is a different organism at this point. Review of the labs shows a trend down with the sed rate, over the course of last 2 weeks has dropped by 15 now at 31. We will continue the ceftriaxone 1 additional week. Continue labs. We will see what the culture shows. Ideally, we would transition to oral antibiotics at this point, do not have any good oral options based on previous cultures back in October. We will see him in 1 week. <ELECTRONICALLY SIGNED> By: Gerardo Sawyer MD 12/07/18 0708 0908 [id number] Sawyer MD /nt
--- NOTE | 2018-12-07 17:06 | PATH ---
[facility] [address] [place] [address] PATHOLOGY RPT PROCEDURE Name: NICK JACKSON Room: [facility] FELICITA Chandler#: [id number] Admission: 12/05/18 Date of : 58 Discharge: Report #: [id number] Path Case #: [id number] [facility] Accession Number: [id number] . 01 Material submitted: . foot - BONE FROM RIGHT FOOT WOUND. Modifiers: right . 01 Clinical history: . Wound right foot . 02 Diagnosis: Right foot wound: - Prominent osteomyelitis and acutely inflamed benign fibrovascular connective tissue. (NEGRO/db; 12/07/2018) LBQ/12/07/2018 . 02 Electronically signed: . Bruce Birmingham MD, Pathologist NPI- [id number] . 01 Gross description: . Received in formalin labeled "Nick Jackson, Rt foot wound," are four fragments of granular, dark de guzman-brown bone ranging from 0.8 x 0.5 x 0.5 cm to 1.2 x 0.7 x 0.7 cm in greatest dimensions. All four segments are bisected and submitted entirely in cassette A1, following decalcification. Extensive fragmentation occurred on sectioning. (DAC; 12/06/2018) XDC/XDC . 02 Pathologist provided ICD-10: M86.171 . 02 CPT . 900070, 104683 Specimen Comment: A courtesy copy of this report has been sent to Specimen Comment: [phone], , . Specimen Comment: Report sent to ,DR SANTOS / DR DA SILVA Performed at: [address], [place], [place] [id number] MD Darwin Owen MD Phone: [phone] Performed at: 02 [facility] [address], [place], [place] [id number] MD Bruce Birmingham MD Phone: [phone]
== END ==
LOC: M.WC 09:33
DX: E11.621 Type 2 diabetes mellitus with foot ulcer (principal); L97.516 Non-pressure chronic ulcer of other part of right foot with bone involvement without evidence of necrosis; L97.524 Non-pressure chronic ulcer of other part of left foot with necrosis of bone; E11.52 Type 2 diabetes mellitus with diabetic peripheral angiopathy with gangrene; I96 Gangrene, not elsewhere classified; E11.69 Type 2 diabetes mellitus with other specified complication; M86.371 Chronic multifocal osteomyelitis, right ankle and foot; E11.42 Type 2 diabetes mellitus with diabetic polyneuropathy; I10 Essential (primary) hypertension

== ENCOUNTER → 2018-12-12 | Outpatient (CLI) | payer OTHER ==
--- NOTE | 2018-12-14 16:40 | CON ---
[address] [address] CONSULTATION Name: ANGELESNICK SCOTT Room: [facility] FELICITA Chandler#: [id number] Admission: 12/12/18 Attend Phys: Herman Mason DPM Discharge: Date of : 58 Report #: [id number] THIS REPORT FOR: //name// CC: Herman Wright DATE OF SERVICE: 12/12/2018 The patient returns today in followup of chronic osteomyelitis involving his right foot. He has a transmetatarsal amputation. He was seen last week. At that point, it was felt to have an exposed bone medial cuneiform, it was debrided. Bone was sent for culture had growth of corynebacterium, path confirmed osteomyelitis. He denies significant amount of pain and discomfort. He has been on extended period of parenteral therapy with ceftriaxone to this point. Evaluation Dr. Mason did debride the site, bone, bled easily, degree of inflammation was relatively less. Dr. Mason noted a bone removed was harder than bone last week, perhaps suggesting that the debulked the osteomyelitis. Chronic foot wound with associated chronic osteomyelitis lengthy discussion between Dr. Mason and the patient. It was generally felt that this would take an extended period of time to heal if at all, although it is clear he has adequate profusion I believe. The thought would likely benefit from below knee amputation. He was unwilling to make that decision at this point. We will follow up with Dr. Harrison next week. We will switch antibiotics to vancomycin. He does have a PICC line in place. Get weekly labs. <ELECTRONICALLY SIGNED> By: Gerardo Sawyer MD 12/14/18 1640 0845 [id number] Sawyer MD /nt
== END ==
LOC: M.WC 13:38
DX: T87.89 Other complications of amputation stump (principal); E11.621 Type 2 diabetes mellitus with foot ulcer; L97.514 Non-pressure chronic ulcer of other part of right foot with necrosis of bone; E11.52 Type 2 diabetes mellitus with diabetic peripheral angiopathy with gangrene; I96 Gangrene, not elsewhere classified; E11.69 Type 2 diabetes mellitus with other specified complication; M86.371 Chronic multifocal osteomyelitis, right ankle and foot; E11.42 Type 2 diabetes mellitus with diabetic polyneuropathy; I10 Essential (primary) hypertension; Y83.5 Amputation of limb(s) as the cause of abnormal reaction of the patient, or of later complication, without mention of misadventure at the time of the procedure

== ENCOUNTER → 2018-12-19 | Outpatient (CLI) | payer OTHER | LOC: M.WC 09:30 | DX: T87.89 Other complications of amputation stump (principal); E11.621 Type 2 diabetes mellitus with foot ulcer; L97.511 Non-pressure chronic ulcer of other part of right foot limited to breakdown of skin; L97.524 Non-pressure chronic ulcer of other part of left foot with necrosis of bone; E11.42 Type 2 diabetes mellitus with diabetic polyneuropathy; E11.51 Type 2 diabetes mellitus with diabetic peripheral angiopathy without gangrene; E11.69 Type 2 diabetes mellitus with other specified complication; M86.371 Chronic multifocal osteomyelitis, right ankle and foot; E11.52 Type 2 diabetes mellitus with diabetic peripheral angiopathy with gangrene; I96 Gangrene, not elsewhere classified; I10 Essential (primary) hypertension; Y83.5 Amputation of limb(s) as the cause of abnormal reaction of the patient, or of later complication, without mention of misadventure at the time of the procedure ==

== ENCOUNTER 2018-12-28 07:29 | Inpatient (IN) | payer OTHER ==
[~2018-12-28] VITALS: Ht 175.3 cm; Wt 99.8 kg
[2018-12-28 11:27] VITALS: BP 145/68
[2018-12-28 11:36] LABS: ABSOLUTE EOSINOPHILS 0.5 thou/uL (0.0-0.7); ABSOLUTE LYMPHOCYTES 1.9 thou/uL (0.8-5.3); ABSOLUTE MONOCYTES 0.8 thou/uL (0.0-1.2); ABSOLUTE NEUTROPHILS 4.2 thou/uL (1.6-8.1); BASOPHILS 0.2 %; EOSINOPHILS 6.8 %; HEMATOCRIT 40.5 % (42.0-52.0); HEMOGLOBIN 13.5 gm/dL (14.0-18.0); LYMPHOCYTES 25.5 %; MCH 27.4 pg (26.0-34.0); MCHC 33.5 g/dL (28.0-37.0); MCV 81.8 fL (80.0-100.0); MONOCYTES 10.9 %; MPV 9.2 fl. (7.2-11.1); NUCLEATED RBCS 0 /100WBC; PLATELET COUNT* 215 thou/uL (150-400); POLYS 56.6 %; RBC 4.95 mil/uL (4.50-6.00); RDW-CV 14.4 % (10.5-14.5); WBC 7.4 thou/uL (4.0-11.0)
[2018-12-28 11:42] LABS: CALCIUM 9.3 mg/dL (8.5-10.1); CREATININE 1.1 mg/dL (0.6-1.3); POTASSIUM 4.2 mmol/L (3.5-5.1)
[2018-12-28 15:30] VITALS: BP 114/71
[2018-12-28 16:03] VITALS: BP 121/66
--- NOTE | 2018-12-28 18:29 | NUR ---
PT ARRIVED TO UNIT AT 1530 FROM PACU. DRESSING IS CLEAN, DRY AND INTACT. ON 1LOX AND CONTINUOUS PULSE OX. PICC IN R UPPER ARM PATENT, INFUSING. PAIN CONTROLLED WITH MORPHINE AND NORCO. DENIED NAUSEA. FALL PRECAUTIONS IN PLACE. TOLERATING FOOD. CALL LIGHT WITHIN REACH. WILL CONTINUE TO MONITOR.
[2018-12-28 19:40] VITALS: BP 158/90
[2018-12-29 00:35] VITALS: BP 147/76
[2018-12-29 04:20] VITALS: BP 149/66
[2018-12-29 04:51] LABS: MCH 27.1 pg (26.0-34.0); MCHC 32.7 g/dL (28.0-37.0); MCV 82.9 fL (80.0-100.0); MPV 9.6 fl. (7.2-11.1); RBC 3.62 mil/uL (4.50-6.00); RDW-CV 14.1 % (10.5-14.5); WBC 10.3 thou/uL (4.0-11.0)
[2018-12-29 05:02] LABS: CALCIUM 8.8 mg/dL (8.5-10.1); CREATININE 1.2 mg/dL (0.6-1.3); POTASSIUM 4.9 mmol/L (3.5-5.1)
[2018-12-29 05:25] LABS: HEMOGLOBIN 9.8 gm/dL (14.0-18.0)
--- NOTE | 2018-12-29 06:01 | NUR ---
PT ALERT AND ORIENTED. VSS ON RA. PT'S O2 SOMETIMES WOULD SAT IN THE 87'S. I PUT PT BACK ON 2L NC. PAIN MEDS GIVEN SEVERAL TIMES THIS SHIFT. RELIEFS NOTED. PT WATING FOR PT/OT TO HELP AMBULATE TO CHAIR. PT SEEMED A LITTLE CONFUSED THIS AM. PT WAS UP FOR MOST OF THE NIGHT. 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 PT TO URINAL FOR VOIDING. CALL LIGHT WITH REACH. HOURLY ROUNDINGS MADE. FALL PRECAUTIONS IN PLACE. WILL CONTINUE PLAN OF CARE.
--- NOTE | 2018-12-29 11:43 | NUR ---
PT.RESTING IN BED. STATED HIS PAIN MEDICATION HAS FINALLY KICKED IN. HE HAS BEEN LIVING AT [facility] SINCE OCTOBER, WHEN HE GOT R FOOT PARTIALLY AMPUTATED. HE PLANS TO RETURN THERE AT DISCHARGE. WOULD BE INTERESTED IN INPT.REHAB IF INSURANCE WOULD ALLOW HIM TO GO. HE DOES NOT KNOW IF HE HAS INS.BENEFIT FOR ACUTE INPT.REHAB. HE IS AN BUTCHER ALL ROUND. HAS A FRIEND THAT HE LIVES WITH NORMALLY AND SHE IS SUPPORTIVE. HE DOES NOT HAVE A DPOA BUT STATED HE HAS THE PAPERWORK AND WILL LOOK AT IT. TO HAVE P.T.THIS AFTERNOON.
[2018-12-29 16:00] VITALS: BP 146/64
--- NOTE | 2018-12-29 18:59 | NUR ---
ASSUMED PT CARE AT 0700, PT LYING IN BED, CALL LIGHT IN REACH, FALL PRECAUTIONS IN PLACE. A&O X4 WITH SOME FORGETFULNESS. VSS, REMAINS ON O2 AT 1LPM. PT/OT ON BOARD, PT WILLING AND COOPERATIVE TO WORK WITH THERAPY. NEW ORDERS TO INCREASE OXY TO 10MG, PT TOLERATING WELL AND STATES MINIMAL PAIN AFTER PRNN PAIN MEDS. HOURLY ROUNDING COMPLETED
[2018-12-29 21:00] VITALS: BP 147/86
[2018-12-30] VITALS (7 sets, daily range): BP systolic 111–141; BP diastolic 54–71
--- NOTE | 2018-12-30 03:51 | NUR ---
PT HAD A FALL @ ABOUT 0145 THIS AM. PT WAS CONFUSED AT THE TIME. hE SAID HE WAS WANTING TO GET TO HIS WHEELCHAIR. HOWEVER, THERE WAS NO WHEELCAHIR ON THE SIDE HE FELL. PER PT "HOW DID I GET HERE? PT WAS REORIENTED TO SITUATION, ROOM AND CALL LIGHT. PT SAID " I'M SORRY, I WAS CONFUSED". PT TRANSFERRED TO ROOM 116 CLOSER TO THE NURSES STATION. NO INJURIES NOTED POST FALL. POST FALL VSS. MELATONIN AND PAIN MEDS GIVEN PER PT'S REQUEST. BENADRYL ALSO GIVEN FOR ANXIETY. COUNTER CLERK TRACTOR [employer]S AND ONCALL DOCTOR NOTIFIED. PT ORIENTED TO ROOM AND CALL LIGHT. 4 SIDERAILS UP. BED ALARM ON. WILL CONTINUE TO MONITOR.
[2018-12-30 05:46] LABS: HEMATOCRIT 25.1 % (42.0-52.0); HEMOGLOBIN 8.3 gm/dL (14.0-18.0); MCH 27.2 pg (26.0-34.0); MCHC 32.9 g/dL (28.0-37.0); MCV 82.7 fL (80.0-100.0); MPV 9.4 fl. (7.2-11.1); RBC 3.04 mil/uL (4.50-6.00); RDW-CV 14.1 % (10.5-14.5); WBC 9.8 thou/uL (4.0-11.0)
--- NOTE | 2018-12-30 05:54 | NUR ---
PT ALERT AND ORIENTED. VSS ON RA. PT PT UP TO CHAIR AT TIME OF ASSESSMENT. PT WAS UP HALF OS SHIFT. PT HAD A FALL. FALL INCIDENT DOCUMENTED. POST FALL ASSESSMENT COMPLETED. PT MOVED TO RM 116. ORIENTED TO ROOM AND CALL LIGHT. HOURLY ROUNDINGS MADE. WILL CONTINUE TO MONITOR.
[2018-12-30 05:55] LABS: CALCIUM 8.7 mg/dL (8.5-10.1); CREATININE 0.9 mg/dL (0.6-1.3); POTASSIUM 3.9 mmol/L (3.5-5.1)
--- NOTE | 2018-12-30 18:05 | NUR ---
PATIENT RESTING IN BED. PATIENT UP TO CHAIR WITH MODERATE ASSIST WITH GAIT BELT AND WALKER. ANU WAS UP IN CHAIR MOST OF AFTERNOON. PATIENT HAS HAD COMPLAINTS OF PAIN TO RIGHT LEG, TREATED ADEQUATELY WITH NAPROXEN AND OXYCODONE. PATIEN THAS GOOD APPETITE. PATIENT HAD NO EPISODES OF CONFUSION TODAY. PATIENT DENIES ANY NEEDS AT THIS TIME. CALL LIGHT WITHIN REACH. WILL CONTINUE TO MONITOR.
[2018-12-31] VITALS: BP 118/61
[2018-12-31 04:00] VITALS: BP 115/63
[2018-12-31 04:10] LABS: HEMATOCRIT 24.9 % (42.0-52.0); MCH 26.7 pg (26.0-34.0); MCHC 32.1 g/dL (28.0-37.0); MCV 82.9 fL (80.0-100.0); MPV 9.4 fl. (7.2-11.1); RDW-CV 14.2 % (10.5-14.5); WBC 7.7 thou/uL (4.0-11.0)
--- NOTE | 2018-12-31 05:34 | NUR ---
PT SLEPT WELL AFTER RECIEVING SLEEP AIDE. R BKA DRSG CDI, SPLINT IN PLACE. UP WITH GB, WALKER AND ASSIST TO BSC TO HAVE BM. R PICC LINE TO BE ASSESSED BY INFUSION NURSE TODAY FOR PROPER POSITIONING. FLUSHES EASILY, NO BLOOD RETURN, SL. HS ACCUCHECK 110, INSULIN GIVEN WITH SNACK. AM LABS DRAWN. AO, ABLE TO USE CALL LITE AND MAKE NEEDS KNOWN. NO EPISODES OF CONFUSION OVERNIGHT. BED ALARM ON FOR SAFETY.
[2018-12-31 08:50] VITALS: BP 97/42
[2018-12-31 11:37] VITALS: BP 114/62
--- NOTE | 2018-12-31 13:52 | NUR ---
REHAB CONSULT PLACED.
--- NOTE | 2018-12-31 14:20 | NUR ---
SPOKE WITH DR EDMONDS REGARDING MALFUNCTIONING PICC LINE. CHEST XRAY ORDERED AND ORDERS RECEIVED FOR MIDLINE PLACEMENT. MELANIE IN INFUSION, NOTIFIED AND MIDLINE PLACED AND PICC LINE REMOVED.
[2018-12-31 16:30] VITALS: BP 150/82
--- NOTE | 2018-12-31 17:10 | NUR ---
PATIENT HAS BEEN A/O X 4 THIS SHIFT. MEDICATED FOR RIGHT LEG PAIN WITH PRN OXY AND PRN NAPROXEN WITH GOOD RELIEF. KNEE IMMOBILZER IN PLACE TO RIGHT LEG, DRESSING TO RT BKA INTACT. VASCULAR ASSESSED PATIENT AND PLAN IS FOR DRESSING CHANGE ON MONDAY. PATIENT'S PICC LINE REMOVED AND MIDLINE PLACED PER FLAVIA NAVARRO. CONTINUES ON IV ANTIBIOTICS. BLOOD SUGARS CHARTED, INSULIN PROVIDED WHEN NEEDED. UP TO CHAIR THIS SHIFT, WORKED WITH PHYSICAL/OCCUPATIONAL THERAPY THIS SHIFT. UP TO BSC WITH GB AND WALKER. FALL PRECAUTIONS IN PLACE. HOURLY ROUNDING COMPLETED. CALL LIGHT WITHIN REACH. WILL CONTINUE WITH PLAN OF CARE.
[2018-12-31 20:20] VITALS: BP 128/77
[2019-01-01] VITALS: BP 129/78
[2019-01-01 04:00] VITALS: BP 121/61
[2019-01-01 04:48] LABS: CREATININE 1.2 mg/dL (0.6-1.3); MAGNESIUM 1.7 mg/dL (1.8-2.4); POTASSIUM 4.1 mmol/L (3.5-5.1)
--- NOTE | 2019-01-01 06:03 | NUR ---
PT SLEPT WELL OVERNIGHT. RECEIVING OXY IR AND TYLENOL EARLY THIS MORNING. SX DRSG CDI TO R BKA, KNEE IMMOBILIZER ON. USING URINAL TO VOID OVERNIGHT.HS ACCUCHECK 139 INSULIN GIVEN WITH SNACK. AM LABS DRAWN FROM MIDLINE WHICH IS SL.ABLE TO USE CALL LITE AND MAKE NEEDS KNOWN, BED ALARM ON FOR SAFETY.
[2019-01-01 07:50] VITALS: BP 133/77
--- NOTE | 2019-01-01 16:28 | NUR ---
ASSESSMENT COMPLETE. PT ALERT AND ORTIENTED X4. PT GIVEN PRN PAIN MEDICATION NEEDED. ACCU CHECK, NO SLIDING SCALE GIVEN TODAY. PT UP IN WHEELCHAIR AND CHAIR PART OF THE DAY. PT/OT WORKED WITH PATIENT TODAY. REHAB CONSULTED. PT USES URINAL NEEDED. TOLERATING MEALS. VSS. MIDLINE TO LEFT UPPER ARM DRAWS AND FLUSHES WITHOUT COMPLICATIONS. SEE ASSESSMENT AND VITALS FOR OTHER DETAILS, CALL LIGHT WITHIN REACH, WILL CONTINUE PLAN OF CARE
[2019-01-01 16:30] VITALS: BP 128/71
--- NOTE | 2019-01-01 17:06 | PATH ---
[address] [address] PATHOLOGY RPT PROCEDURE Name: ANGELESTOÑOZAINAB CHAVEZ Room: [facility] IN M.R.#: [id number] Admission: 12/28/18 Date of : 58 Discharge: Report #: [id number] Path Case #: [id number] LCA Accession Number: [id number] . 01 Material submitted: . leg - RIGHT BELOW KNEE AMPUTATION. Modifiers: right . 01 Clinical history: . Peripheral arterial occlusive disease . 02 Diagnosis: Right below knee amputation: - Benign right lower extremity with evidence of previous forefoot amputation including acute and chronic inflammation, fibrosis and necrosis of soft tissues and inflamed bone callus at distal margin in association with missing forefoot (including five toes) and with severe calcifying and occlusive arteriosclerosis of anterior and posterior tibial arteries. (NEGRO:micaela; 01/01/2019) QMS/01/01/2019 . 02 Electronically signed: . Bruce Birmingham MD, Pathologist NPI- [id number] . 01 Gross description: . The specimen is received fresh in a red biohazard bag, labeled "Toño Jackson, right below knee amputation". Received is a right gilzb-nyo-tynl amputation, with all five toes and partial forefoot previously amputated. The specimen measures 12.1 cm from distal amputated aspect of foot to heel, 18.5 cm from heel to skin margin, 31.7 cm from heel to tibial margin, and 32.3 cm from heel to fibular margin. The skin and soft tissue margins are viable. At the distal aspect of the foot, there is a poorly circumscribed, irregular in contour and pink-de guzman to slightly fletcher-de guzman, necrotic-appearing lesion measuring 7.1 x 4.4 cm. The remainder of the skin is pale de guzman and slightly flaky in appearance. Sectioning through the anterior and posterior tibial vasculatures reveals patent lumens. The specimen is submitted representatively as follows: . A1 skin and soft tissue margin A2-A3 employee's representative sections of the lesion at distal aspect of foot stump A4 employee's representative section of underlying bone at distal aspect of foot stump, following the calcification A5 anterior tibial vasculature A6 posterior tibial vasculature. (CAA; 12/31/2018) QAC/QAC . [address] [place] [address] PATHOLOGY RPT PROCEDURE Name: TOÑO JACKSON Room: [address] IN .R.#: [id number] Admission: 12/28/18 Date of : 58 Discharge: Report #: [id number] Path Case #: [id number] Pathologist provided ICD-10: I70.261 . 02 CPT . [id number] Specimen Comment: A courtesy copy of this report has been sent to Specimen Comment: [phone], , . Specimen Comment: Report sent to ,DR FIERRO / DR SANTOS Performed at: [address] [facility] [address], [place], [place] [id number] MD Darwin Owen MD Phone: [phone] Performed at: 02 [facility] [address] Sanchez, [place], [place] [id number] MD Bruce Birmingham MD Phone: [phone]
[2019-01-02 00:41] VITALS: BP 140/71
[2019-01-02 04:02] VITALS: BP 164/80
--- NOTE | 2019-01-02 05:47 | NUR ---
PT SLEPT OFF AND ON OVERNIGHT, EXPERIENCING SOME ANXIETY THIS SHIFT-BENADRYL GIVEN WITH FAIR RESULTS. PO PAIN MED GIVEN X1 WITH GOOD RESULT. UP WITH SBA, GB, WALKER TO CHAIR. SURGICAL DRSG CDI TO R LEG, KNEE IMMBOLIZER ON. USING URINAL TO VOID WITHOUT DIFFICULTY. SAMANTHA MIDLINE SL. NO LABS THIS MORNING. PT HOPEFUL FOR DISCHARGE TO REHAB TODAY. ABLE TO USE CALL LITE AND MAKE NEEDS KNOWN. CALL LITE IN EASY REACH.
[2019-01-02 08:10] VITALS: BP 160/80
--- NOTE | 2019-01-02 09:08 | OP ---
[facility] [address] [place] [address] OPERATIVE REPORT Name: NICK REYNOSO Room: [address] IN M.R.#: [id number] Admission: 12/28/18 Attend Phys: Sp Steiner Discharge: Date of : 58 Report #: [id number] THIS REPORT FOR: //name// CC: Gaurav Garcia DATE OF SERVICE: 12/28/2018 PREOPERATIVE DIAGNOSIS: Nonhealing right diabetic foot wound. POSTOPERATIVE DIAGNOSIS: Nonhealing right diabetic foot wound. OPERATION: Right below knee amputation. SURGEON: Gaurav Harrison DO VICE CHAIR: HAIDER Saucedo ANESTHESIA: General. ESTIMATED BLOOD LOSS: 500 mL. FLUIDS: About 800 mL of crystalloid. URINE OUTPUT: None. SPECIMENS: Right lower leg. FINDINGS: He had excellent bleeding at the level of the amputation, created a posterior flap. This came together without undue tension. CLINICAL HISTORY: The patient is a 58-year-old man, who has been dealing with right foot wound. He has undergone multiple foot surgeries and amputations and has persistent wound that is not healing. He is felt to not have a salvageable foot and so recommendation was made for a below-knee amputation. DESCRIPTION OF PROCEDURE: After informed consent was obtained, the patient was taken to the operating room and placed on the OR bed in supine position. He was administered general anesthesia by Anesthesia team. Right lower extremity was prepped and draped in the usual sterile fashion. A full timeout was performed identifying correct patient and procedure. Next, standard posterior flap incision was made on the left lower leg about 4 fingerbreadths below the tibial tuberosity. Dissection was carried down through the skin and subcutaneous tissue both sharp and electrocautery. The tibia was circumferentially mobilized. I used periosteal elevator to elevate the periosteum [place] [address] OPERATIVE REPORT Name: NICK REYNOSO Room: [address] IN [facility]#: [id number] Admission: 12/28/18 Attend Phys: Sp Steiner Discharge: Date of : 58 Report #: [id number] the tibia. In a similar fashion, I did this to the fibula. I then used the oscillating bone saw and transected the tibia ultimately about 3 fingerbreadths below the tibial tuberosity. I then transected the fibula about a centimeter more proximal than the tibial cut. I beveled an anterior edge on the tibia, so as to relieve the pressure point. I then used the amputation knife and created the posterior flap. I then controlled hemostasis with suture ligatures and electrocautery. I transected the tibial nerve as far under the tibia as could visualize. Once hemostasis was ensured, the wound was irrigated with antibiotic solution. I then debulked the soleus muscle and a little bit gastrocnemius muscle in order to create a posterior flap without excess tension. I then closed the wound in layers with 0 Vicryl and 2-0 Vicryl and then adriana in the skin. Sterile dressings were applied. All sponge, sharp and instrument counts reported correct x 2. He tolerated the procedure well and transferred to recovery area in stable condition. <ELECTRONICALLY SIGNED> By: Gaurav Harrison DO 01/02/19 0908 [id number] 1415Ageorgina Harrison DO /nt
--- NOTE | 2019-01-02 12:32 | NUR ---
ORDERS NOTED FOR DC TO REHAB PENDING AUTH. SPOKE WITH [facility]. SHE GAYLE DISCUSS WITH DR BARCLAY AND CALL CM BACK. PT UPDATED. ID TO SEE PT TODAY
[2019-01-02 16:33] VITALS: BP 137/82
--- NOTE | 2019-01-02 17:43 | NUR ---
Following patient along with Dr. Antoine. Patient has been accepted to acute rehab pending insurance authorization. Notified Amira DOBSON of acceptance pending auth. Will plan to admit to acute rehab once authorization is received.
--- NOTE | 2019-01-02 17:55 | NUR ---
ASSUMED CARE OF PATIENT AT APPROX 0730. ALERT AND ORIENTED X4. ASSESSMENT COMPLETED AND CHARTED. VSS ON ROOM AIR. PAIN MANAGED WITH ORAL MEDICATION. DRESSING CHANGED ON RIGHT BKA TODAY, [facility] CAME TO THE UNIT TODAY TO FIT THE PATIENT FOR A FINGERPRINTER SOCK. PATIENT COMPLAINTS OF FEELING LIKE HE CANT BREATHE, 02 SATS AND VITALS STABLE. I ASKED THE PATIENT IF HE MIGHT BE HAVING SOME ANXIETY AND IF HE HAD EVER TAKEN ANY MEDICATION FOR THIS, HE STATED NO. ASKED DR SNOW TO ORDER SOEMTHING FOR ANXIETY, ORDERS FOR XANAX PUT IN. GAVE PATIENT A DOSE OF XANAX AND HE STATED THAT HE WAS FEELING BETTER. PATIENT UP WITH GAIT BELT AND WALKER. PATIENT WORKED WITH THERAPIES TODAY AND PROGRESSED TOWARD GOALS. FALL PRECAUTIONS IN PLACE. CALL LIGHT WITHIN REACH. HOURLY ROUNDS COMPLETED. WILL CONTINUE TO MONITOR.
--- NOTE | 2019-01-03 06:13 | NUR ---
PATIENT HAS SLEPT WELL THROUGHOUT THE NIGHT. VSS ON RA. MEDICATIONS GIVEN ORDERED AND CHARTED. ASSESSMENT CHARTED. DRESSING TO RIGHT STUMP IS C/D/I AND IMMOBILIZER IN PLACE. LEFT UPPER ARM MIDLINE-SL. PATIENT INSTRUCTED TO USE CALL LIGHT WHEN NEEDING ASSISTANCE. HOURLY ROUNDS MADE. WILL CONTINUE WITH PLAN OF CARE AND NURSING TO MONITOR.
[2019-01-03 08:10] VITALS: BP 131/68
--- NOTE | 2019-01-03 10:39 | NUR ---
SPOKE WITH [facility],THEY HAVE INSURANCE AUTH AND PT TO TRANSFER TO REHAB TODAY. NURSE AWARE AND PT UPDATED
[2019-01-03] MEDS ORDERED: HUMALOG100 UNIT/1 SUBQ (11:29)
[2019-01-03 11:33] VITALS: BP 131/68
== END 2019-01-03 13:18 | DRG 617 ==
LOC: M.PRE 07:29 → M.TBA 10:42 → M.ORTHSURG 10:42 → M.PRE 13:49 → M.ORTHSURG 14:55
PROVIDERS: Internal Medicine; Surgery; ADMIT Internal Medicine
PROC: 0Y6H0Z1 Detachment at Right Lower Leg, High, Open Approach (ICD-10-PCS; principal; 2018-12-28)
PROC: 05H533Z Insertion of Infusion Device into Right Subclavian Vein, Percutaneous Approach (ICD-10-PCS; 2018-12-31)
DX: E11.69 Type 2 diabetes mellitus with other specified complication (principal); I50.22 Chronic systolic (congestive) heart failure; D62 Acute posthemorrhagic anemia; M86.8X7 Other osteomyelitis, ankle and foot; I13.0 Hypertensive heart and chronic kidney disease with heart failure and stage 1 through stage 4 chronic kidney disease, or unspecified chronic kidney disease; E11.621 Type 2 diabetes mellitus with foot ulcer; I25.10 Atherosclerotic heart disease of native coronary artery without angina pectoris; E11.40 Type 2 diabetes mellitus with diabetic neuropathy, unspecified; E11.22 Type 2 diabetes mellitus with diabetic chronic kidney disease; N18.2 Chronic kidney disease, stage 2 (mild); Z88.0 Allergy status to penicillin; Z88.8 Allergy status to other drugs, medicaments and biological substances; Z95.1 Presence of aortocoronary bypass graft; Z89.431 Acquired absence of right foot; Z87.891 Personal history of nicotine dependence; Z79.82 Long term (current) use of aspirin; Z79.899 Other long term (current) drug therapy

== ENCOUNTER 2019-01-03 10:54 | Inpatient (IN) | payer OTHER ==
[~2019-01-03] VITALS: Ht 175.3 cm; Wt 89.8 kg
[2019-01-03] MEDS ORDERED: HUMALOG100 UNIT/1 SUBQ (11:29)
[2019-01-03 13:45] VITALS: BP 137/67
[2019-01-03 16:56] LABS: URINE BILIRUBIN NEGATIVE (Negative); URINE BLOOD NEGATIVE (Negative); URINE CLARITY CLEAR; URINE COLOR YELLOW; URINE GLUCOSE-RANDOM NEGATIVE (Negative); URINE KETONES NEGATIVE (Negative); URINE LEUKOCYTES-REFLEX NEGATIVE (Negative); URINE NITRITE-REFLEX NEGATIVE (Negative); URINE PROTEIN NEGATIVE (Negative); URINE SPECIFIC GRAVITY <= 1.005 (1.005-1.030); URINE UROBILINOGEN 0.2 E.U./dl (0.2-1.0)
[2019-01-03 20:13] VITALS: BP 121/59
[2019-01-04 05:35] LABS: HEMATOCRIT 25.8 % (42.0-52.0); HEMOGLOBIN 8.4 gm/dL (14.0-18.0); MCH 26.9 pg (26.0-34.0); MCHC 32.7 g/dL (28.0-37.0); MCV 82.4 fL (80.0-100.0); MPV 9.8 fl. (7.2-11.1); RBC 3.13 mil/uL (4.50-6.00); RDW-CV 14.4 % (10.5-14.5); WBC 6.9 thou/uL (4.0-11.0)
[2019-01-04 05:46] LABS: CALCIUM 9.3 mg/dL (8.5-10.1); POTASSIUM 4.1 mmol/L (3.5-5.1)
[2019-01-04 08:02] VITALS: BP 106/67
[2019-01-04 19:50] VITALS: BP 123/71
[2019-01-05 08:09] VITALS: BP 137/71
[2019-01-05 20:18] VITALS: BP 106/60
[2019-01-06 08:24] VITALS: BP 162/75
[2019-01-06 20:00] VITALS: BP 136/78
[2019-01-07 09:11] VITALS: BP 113/60
[2019-01-07 20:00] VITALS: BP 147/71
[2019-01-08 08:00] VITALS: BP 166/61
[2019-01-08 19:47] VITALS: BP 141/76
[2019-01-09 08:17] VITALS: BP 127/70
[2019-01-09 20:00] VITALS: BP 138/76
[2019-01-10 08:00] VITALS: BP 125/63
[2019-01-10 20:27] VITALS: BP 127/79
[2019-01-11 08:00] VITALS: BP 147/60
[2019-01-11 20:21] VITALS: BP 147/61
[2019-01-12 04:13] LABS: HEMATOCRIT 29.7 % (42.0-52.0); HEMOGLOBIN 9.6 gm/dL (14.0-18.0); MCH 26.3 pg (26.0-34.0); MCHC 32.1 g/dL (28.0-37.0); MCV 81.8 fL (80.0-100.0); RBC 3.63 mil/uL (4.50-6.00); RDW-CV 14.2 % (10.5-14.5); WBC 8.1 thou/uL (4.0-11.0)
[2019-01-12 04:36] LABS: ALBUMIN 3.3 g/dL (3.4-5.0); CALCIUM 9.3 mg/dL (8.5-10.1); CREATININE 1.1 mg/dL (0.6-1.3); MAGNESIUM 1.9 mg/dL (1.8-2.4); POTASSIUM 4.5 mmol/L (3.5-5.1); TOTAL BILIRUBIN 0.2 mg/dL (<0.1-1.0); TOTAL PROTEIN 6.9 g/dL (6.4-8.2)
[2019-01-12 08:24] VITALS: BP 131/62
[2019-01-12 19:00] VITALS: BP 148/70
[2019-01-13 08:00] VITALS: BP 137/72
[2019-01-13 20:02] VITALS: BP 157/75
[2019-01-14 08:00] VITALS: BP 117/63
[2019-01-14 08:29] VITALS: BP 117/63
[2019-01-14 19:30] VITALS: BP 138/72
[2019-01-15 07:40] VITALS: BP 147/76
[2019-01-15 15:33] VITALS: BP 147/76
[2019-01-15 19:30] VITALS: BP 140/72
[2019-01-16 08:23] VITALS: BP 134/69
[2019-01-16] MEDS ORDERED: SENNA S TABLET1 EACH PO (12:23)
[2019-01-16 13:18] VITALS: BP 147/76
[2019-01-16 13:29] VITALS: BP 147/76
== END 2019-01-16 14:23 | disposition home health service (06) | DRG 638 ==
LOC: M.REH 10:54
PROVIDERS: Family Medicine; ADMIT Physical Medicine & Rehabilitation
DX: E11.621 Type 2 diabetes mellitus with foot ulcer (principal); I50.22 Chronic systolic (congestive) heart failure; D62 Acute posthemorrhagic anemia; M86.8X7 Other osteomyelitis, ankle and foot; I13.0 Hypertensive heart and chronic kidney disease with heart failure and stage 1 through stage 4 chronic kidney disease, or unspecified chronic kidney disease; E11.40 Type 2 diabetes mellitus with diabetic neuropathy, unspecified; L97.519 Non-pressure chronic ulcer of other part of right foot with unspecified severity; R53.1 Weakness; E11.22 Type 2 diabetes mellitus with diabetic chronic kidney disease; E11.69 Type 2 diabetes mellitus with other specified complication; I25.10 Atherosclerotic heart disease of native coronary artery without angina pectoris; Z95.1 Presence of aortocoronary bypass graft; Z89.511 Acquired absence of right leg below knee; Z87.891 Personal history of nicotine dependence; Z79.4 Long term (current) use of insulin; Z79.02 Long term (current) use of antithrombotics/antiplatelets; Z79.82 Long term (current) use of aspirin; Z79.899 Other long term (current) drug therapy; Z88.0 Allergy status to penicillin; Z88.8 Allergy status to other drugs, medicaments and biological substances

== ENCOUNTER 2019-01-29 13:05 | Emergency (ER) | payer OTHER ==
[~2019-01-29] VITALS: Ht 175.3 cm; Wt 90.7 kg
[~2019-01-29 13:05] MED LIST changes: +HUMALOG100 UNIT/1 SUBQ; +SENNA S TABLET1 EACH PO
[2019-01-29 13:27] LABS: HEMATOCRIT 32.1 % (42.0-52.0); HEMOGLOBIN 10.6 gm/dL (14.0-18.0); MCH 25.7 pg (26.0-34.0); MCV 77.9 fL (80.0-100.0); MPV 9.3 fl. (7.2-11.1); RBC 4.12 mil/uL (4.50-6.00); RDW-CV 14.3 % (10.5-14.5); WBC 5.8 thou/uL (4.0-11.0)
[2019-01-29 13:35] LABS: CALCIUM 9.3 mg/dL (8.5-10.1); CREATININE 1.1 mg/dL (0.6-1.3); POTASSIUM 3.7 mmol/L (3.5-5.1)
[2019-01-29 13:36] LABS: APTT 25.3 Seconds (25.0-31.3); PROTIME 10.5 Seconds (9.20-11.50)
[2019-01-29 13:42] LABS: ALBUMIN 3.6 g/dL (3.4-5.0); TOTAL BILIRUBIN 0.5 mg/dL (<0.1-1.0); TOTAL PROTEIN 7.2 g/dL (6.4-8.2)
[2019-01-29 15:55] VITALS: BP 162/81
--- NOTE | 2019-01-30 17:13 | EKG ---
[place] [address] ELECTROCARDIOGRAM REPORT Name: UMAIR REYNOSOIFFRAN CHAVEZ Room: [facility] ([place] [place])#: [id number] Admission: 01/29/19 Attend Phys: Discharge: 01/29/19 Date of : 58 Report #: [id number] THIS REPORT FOR: //name// [facility] ED Test Date: 2019-01-29 Test Time: 15:16:28 Pat Name: NICK REYNOSO Department: Room: Gender: M Laboratory Coordinator: : 1960 Requested By: Terrance Day Order Number: [id number] MD: Gt Street Measurements Intervals [place] Rate: 83 P: 53 LA: 188 QRS: 19 QRSD: 98 T: 35 QT: 361 QTc: 425 Interpretive Statements Sinus rhythm Atrial premature complex Probable left atrial enlargement Compared to ECG 10/10/2018 10:06:21 Atrial premature complex(es) now present Sinus tachycardia no longer present Early repolarization no longer present Electronically Signed On 01-30-2019 17:13:[address] [email or web address] <ELECTRONICALLY SIGNED> By: [address] MD, [facility] 01/30/[address] MD, [facility] /EPI
--- NOTE | 2019-02-02 14:40 | CON ---
[address] [address] CONSULTATION Name: NICK REYNOSO Room: [facility] Geraldine#: [id number] Admission: 01/29/19 Attend Phys: Discharge: 01/29/19 Date of : 58 Report #: [id number] THIS REPORT FOR: //name// CC: Terrance Day Fred Wright DATE OF SERVICE: 01/29/2019 This is a 58-year-old male patient, who was evaluated by me in the Emergency Room for the possibility of a stroke. I initially talked to Dr. Day, the Emergency Room physician, who saw this patient around 13:48. That is the first call I got and the history I got from Dr. Day is that this patient had symptoms of right-sided weakness as well as speech difficulty and the last seen well was around 6:00 this morning. He indicated that the CT scan demonstrated subacute strokes. I was in [facility]. I asked him to get CT stroke protocol to further evaluate him even if the CT scan shows subacute stroke. I dropped from [facility] to [facility] and saw the patient immediately. Since then, I have talked to the radiologist and reviewed the films with him. I talked to Dr. Day multiple times. I was able to reach the patient's daughter earlier, Jessica Tillman, at the Emergency Room at [employer], where she worked. She indicated that this patient lives with a roommate. She was not able to reach the roommate, but was trying to reach her. We talked about this patient having a stroke, but our aim was to see if this patient is a TPA candidate or not. Talking to her, it was her impression the best she can tell that the duration was more than 4-1/2 hours for the onset of the symptoms. This patient also had amputation, which as I understand was 2 weeks ago, and he had pretty significant bleeding from that amputation last Monday. From all indications, the initial information was that this patient had a stroke-like symptom causing right hemiplegia and speech difficulty and the last seen was utility tech around 6:30 when his roommate left and that was the last normal. The patient could not tell when was the time of onset because of the patient's aphasia. Review of systems was done quickly because of the time constraint. He had a right facial palsy. He had a right amputation. He has a history of hyperlipidemia, osteomyelitis and peripheral neuropathy. He had cellulitis and gangrene. This was the history I got, but as I said, because of time constraint, emphasis was put on other things. I examined the patient multiple times. Initially, this patient had no movement in the right upper extremity, but subsequently did have movement. His speech was not there; he was able to understand everything, but speech output was not there. This [place] [address] CONSULTATION Name: NICK REYNOSO SCOTT Room: [facility] ELIAZAR Chandler#: [id number] Admission: 01/29/19 Attend Phys: Discharge: 01/29/19 Date of : 58 Report #: [id number] As mentioned above, my initial information was that the patient last seen well was at 6:30 a.m. That was outside the window for TPA because 4-1/2 hours had past. The patient also had extensive bleeding from the amputation site last Monday and that surgery was done 2 weeks ago. Because of that, he was not considered a TPA candidate. Subsequently, I was able to reach the patient's roommate. She provided history that when she came back at noon, he definitely had stroke-like symptoms; but she also indicated that she talked to him at 11:00, and at that time, he was able to talk. His speech was unremarkable at that time according to her. Whether he had any weakness or not, she cannot tell for sure, but he did not mention any. With that information, the patient was possibly well at 11:00, although the weakness cannot be excluded, but that information I was able to get by talking to the patient's roommate around 3:30, but at that time, TPA time has again passed even if he was well at 11:00 because that was 4-1/2 hours. The other problem, he had surgery 2 weeks ago as well as bleeding from the stump last Monday. An extensive effort was made to see if we can do some intervention. Because of that, CT angio and perfusion was recommended, which Emergency Room recommended if BUN and creatinine was normal. It was normal and it was done. That demonstrated basilar artery occlusion. This is a complicated patient. 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 He can still move left side. This patient has evidence of prior strokes in the cerebellum as well as other posterior circulation including the occipital area. Therefore, it is difficult to tell about the duration of this basilar artery occlusion. I talked to the daughter, who indicates she is durable power of platform man. We talked about TPA. She is agreeable that we need to hold TPA and wanted to hold that. She wanted to proceed with intervention. I discussed with them that we do not have any facility here and we need to transfer him to some other facilities. I gave her those options and we contacted [facility]. He was fine with going to [facility] and the patient was fine. ER physician was going to make arrangement, but I did talk to their neurologist and we all agree that he needs to be transferred quickly there to see if any intervention can be done. In the meantime, I gave him a saline bolus and I asked the nurses to keep his head flat. His blood pressure is running about 150. We can give some more boluses to raise it somewhat higher, but the main emphasis should be to see if any intervention can be done. I talked to the radiologist and his images were uploaded to the [facility] for [facility] to review and they will make the decision there. Approximately 50 minutes of time was spent taking care [place] [address] CONSULTATION Name: NICK REYNOSO Room: [facility].#: [id number] Admission: 01/29/19 Attend Phys: Discharge: 01/29/19 Date of : 58 Report #: [id number] majority of that time was spent counseling and coordinating his care in the manner summarized above. <ELECTRONICALLY SIGNED> By: Lester Faulkner MD 02/02/19 1440 1604 0101Parálvaro Faulkner MD /nt
== END 2019-01-29 16:05 | disposition short-term general hospital (02) ==
LOC: M.ERS 13:05
PROVIDERS: Emergency Medicine
DX: I63.9 Cerebral infarction, unspecified (principal); I65.1 Occlusion and stenosis of basilar artery; I13.0 Hypertensive heart and chronic kidney disease with heart failure and stage 1 through stage 4 chronic kidney disease, or unspecified chronic kidney disease; I50.22 Chronic systolic (congestive) heart failure; E11.22 Type 2 diabetes mellitus with diabetic chronic kidney disease; N18.2 Chronic kidney disease, stage 2 (mild); I25.10 Atherosclerotic heart disease of native coronary artery without angina pectoris; I73.9 Peripheral vascular disease, unspecified; E78.5 Hyperlipidemia, unspecified; Z86.2 Personal history of diseases of the blood and blood-forming organs and certain disorders involving the immune mechanism; Z88.8 Allergy status to other drugs, medicaments and biological substances; Z88.0 Allergy status to penicillin; Z79.4 Long term (current) use of insulin